=== PATIENT | female | born 1960 | race Caucasian/White ===

== ENCOUNTER 2019-08-03 13:56 | Outpatient (CLI) | payer OTHER, SELFPAY ==
--- NOTE | ~2019-08-03 | US_ITS ---
EXAMINATION: US venous doppler LE RT DATE: 08/03/2019 14:31 INDICATION: Right lower limb pain TECHNIQUE: Grayscale ultrasound images without and with compression and Doppler ultrasound images of the right lower extremity veins were obtained. COMPARISON: 09/11/2017 FINDINGS: Noncompressible deep venous thrombosis in one of the paired peroneal veins at the right calf. Partial ly compressible thrombus in the right soleal vein. The visualized portions of right common femoral ve in, profunda (deep) femoral vein, femoral vein, popliteal vein, peroneal trunk, posterior tibial vein s, gastrocnemius vein and greater saphenous vein outflow are patent. IMPRESSION: 1. Deep venous thrombosis below the knee in one of the paired right peroneal veins and in the right soleal vein. Dr. Shelley discussed these findings with Dr. Montilla at 2:45 PM. Reviewed, dictated and finalized at location A. OGRAPH TINTER IMPRESSION: 1. Deep venous thrombosis below the knee in one of the paired right peroneal v eins and in the right soleal vein. Dr. Shelley discussed these findings with Naeem Montilla at 2:45 PM.
== END 2019-08-03 13:57 | disposition home or self-care (01) ==
LOC: CHSIMG 13:59
PROVIDERS: PCP Family Medicine; Visit Provider Family Medicine
DX: M79.669 Pain in unspecified lower leg (principal)
CPT/HCPCS: 93971

== ENCOUNTER 2019-08-04 07:58 | Outpatient (CLI) | payer OTHER, SELFPAY ==
[2019-08-04 08:17] LABS: Hematocrit 39.8 % (35.0-49.0); Hemoglobin 13.1 g/dL (12.0-15.0); Mean Corpuscular HGB Conc 32.9 g/dL (32.0-36.0); Mean Corpuscular Hemoglobin 27.5 pg (27.0-31.0); Mean Corpuscular Volume 83.6 fL (78.0-102.0); Mean Platelet Volume 9.7 fl (9.2-11.8); Platelet Count Result 284 K/mm3 (150-420); Red Blood Count 4.76 M/mm3 (4.20-5.40); Red Cell Distribution Width 13.2 % (11.6-14.4); White Blood Count 6.7 K/mm3 (4.8-10.8)
[2019-08-04 09:24] LABS: Alanine Aminotransferase 22 U/L (14-59); Albumin Level 3.4 g/dL (3.4-5.0); Alkaline Phosphatase 76 U/L (46-116); Anion Gap 13.7 mmol/L (7-16); Aspartate Amino Transferase 17 U/L (15-37); Bilirubin,Total 0.3 mg/dL (0.00-1.00); Blood Urea Nitrogen 15 mg/dL (7-18); Calcium 8.6 mg/dL (8.5-10.1); Carbon Dioxide 28 mmol/L (21-32); Chloride 106 mmol/L (98-108); Cholesterol 209 mg/dL (0-200); Estimated Glomerular Filt Rate > 60; Folic Acid 8.3 ng/mL (8.6->20); Glucose 103 mg/dL (70-99); HDL Direct 56 mg/dL (40-60); LDL Cholesterol Calculated 138 mg/dL (<130); Osmolality Calculated 296 mOsm/kg (285-295); Potassium 4.7 mmol/L (3.5-5.1); Sodium 143 mmol/L (136-145); Total Protein 6.7 g/dL (6.4-8.2); Triglycerides 77 mg/dL (0-150); Vitamin B12 654 pg/mL (193-986)
[2019-08-09 19:58] LABS: Vitamin D 25 Hydroxy 31 ng/mL (30-100)
== END 2019-08-04 07:59 | disposition home or self-care (01) ==
LOC: CHSLAB 08:03
PROVIDERS: PCP Family Medicine; Visit Provider Family Medicine
DX: M79.669 Pain in unspecified lower leg (principal); E78.5 Hyperlipidemia, unspecified; E53.8 Deficiency of other specified B group vitamins; E55.9 Vitamin D deficiency, unspecified
CPT/HCPCS: 36415; 80053; 80061; 82306; 82607; 82746; 85027

== ENCOUNTER 2020-03-06 14:31 | Emergency (ER) | payer OTHER, SELFPAY ==
--- NOTE | ~2020-03-06 | XR_ITS ---
EXAMINATION: XR tibia fibula RT 2V EXAM DATE: 03/06/2020 15:33 INDICATION: Right lower leg pain radiating to foot. TECHNIQUE: Right tibia/fibula frontal and lateral projections obtained and reviewed. There is no chris or study for comparison. FINDINGS: Right tibial and fibular shafts unremarkable. There are no acute fractures or dislocations identified. There is no subcutaneous gas. The soft tissue is unremarkable. There are no radiopaq ue foreign bodies. IMPRESSION: 1. Unremarkable XR tibia fibula RT 2V exam. Reviewed, dictated and finalized at location B.
--- NOTE | ~2020-03-06 | US_ITS ---
EXAMINATION: US venous doppler LE RT DATE: 03/06/2020 15:22 INDICATION: Right lower limb pain TECHNIQUE: Larose scale images without and with compression and Doppler images of the right lower extre mity veins were obtained. COMPARISON: 08/03/2019 FINDINGS: There is persistent thrombosis in one of two peroneal veins and the soleus vein. There is p artial thrombosis of the gastrocnemius vein, new since the prior examination. The right common femora l vein, profunda femoral vein, femoral vein, popliteal vein, posterior tibial veins, and greater saph enous vein are patent. IMPRESSION: 1. Chronic thrombosis in one of two peroneal veins and the soleus vein and new partial thrombosis of the gastrocnemius vein. These findings were discussed with Dr. Andrew Burdick MD in the Emergency Department at 1532 hour s on 03/06/2020. Reviewed, dictated and finalized at location A. IMPRESSION: 1. Chronic thrombosis in one of two peroneal veins and the soleus vein and new partial thrombosis of the gastrocnemius vein. These findings were discussed with Dr. Andrew Burdick MD in the Emergency D epartment at 1532 hours on 03/06/2020.
--- NOTE | 2020-03-06 14:39 | ED.LOWEXIN ---
HPI - Extremity Injury (Lower) General Chief Complaint: Extremity Injury, Lower Stated Complaint: R calf pain Time Seen by Provider: 03/06/20 14:50 Source: patient Mode of arrival: ambulatory Limitations: no limitations History of Present Illness HPI Narrative: 59-year-old woman comes in today complaining of right calf pain that started approximately 12 30 today. Patient states that she was eating lunch and when she stood up she had sudden sharp pain in her right calf. She denies any injury, nausea, vomiting, shortness of breath, chest pain, or swelling. She states the pain radiates down into her ankle and posterior foot. She has no pain above her knee. She was diagnosed with a right lower extremity DVT in the last year and is currently taking apixaban. complaint: other ( Calf pain) Onset (ago): hour(s) (3) Place: work Severity: severe Relieving factors: rest Exacerbating factors: weight bearing, movement and palpation Associated symptoms: numbness ( right foot now resolved) and tingling ( right foot now resolved) Other symptoms: none Related Data Home Medications Medication Instructions Recorded Confirmed albuterol sulfate 90 mcg/actuation 1 puff INHALATION Q4H PRN 07/29/19 03/06/20 aerosol inhaler Allergies Allergy/AdvReac Type Severity Reaction Status Date / Time acetaminophen [Vicodin] Allergy Intermediate Unknown Verified 10/11/19 07:19 hydrocodone [Vicodin] Allergy Intermediate Unknown Verified 10/11/19 07:19 Review of Systems Constitutional: Constitutional: Denies chills and Denies fever(s) Cardiovascular: Cardiovascular: Denies chest pain and Denies radiating jaw, neck or arm pain Respiratory: Respiratory: Denies cough and Denies dyspnea Gastrointestinal: Gastrointestinal: Denies abdominal pain, Denies nausea and Denies vomiting Musculoskeletal: Musculoskeletal: Reports as per HPI, Denies back pain, Denies arthralgias and Denies joint swelling Integumentary/Breasts: Skin/Breast: Denies pruritus, Denies rash and Denies skin ulcer Neurologic: Denies vertigo, Denies dizziness and Denies syncope Hematologic/Lymphatic: Hematologic/Lymphatic: Denies easy bleeding and Denies easy bruising Allergic/Immunologic: Allergic/Immunologic: Denies lip swelling and Denies tongue swelling PMF Past Medical History Medical History Asthma History of DVT (deep vein thrombosis) Hyperlipidemia Osteoarthritis Vitamin B12 deficiency Vitamin D deficiency Surgical History Surgical History H/O section History of cholecystectomy 2004 History of hysterectomy Social History Social History Smoking status: Former smoker Tobacco type: cigarettes Additional smoking assessment comments: Quit 2010. Over 30 pack-year history Additional occupation/education comments: [employer]. Exam Const: General: healthy appearing and alert Nutritional Appearance: obese Orientation/consciousness: patient oriented x3 Limitations: no limitations Other: moderate acute distress. Resp: Effort & Inspection: normal respiratory effort and not labored Auscultation: clear to auscultation bilaterally, no rales, no rhonchi and no wheezes Cardio: Rate: regular rate Rhythm: regular rhythm Heart sounds: no murmurs Skin: General skin exam: no jaundice and no pallor Rashes: no rashes Neuro: General: patient oriented x3, moves all extremities, no focal motor deficits and CN's II-XI intact bilaterally Speech: normal speech Other: Antalgic gait. Extrem: General: normal to inspection and no clubbing, cyanosis or edema Psych: Appearance: grossly normal and well kempt Mental Status: mental status grossly normal Affect: normal affect Attitude: cooperative Thought content: Yes Normal thought content present MDM - Extremity Injury (Lower)
[2020-03-06 14:51] VITALS: BP 129/83; PULSE 84; RESP 18; TEMP 37.3; O2SAT 96
[2020-03-06 16:36] VITALS: BP 152/92; PULSE 88; RESP 18; O2SAT 97
== END 2020-03-06 16:35 | disposition home or self-care (01) ==
PROVIDERS: Emergency Provider Emergency Medicine; PCP Family Medicine
DX: I82.501 Chronic embolism and thrombosis of unspecified deep veins of right lower extremity (principal)
CPT/HCPCS: 73590; 93971; 99283; 99284

== ENCOUNTER 2020-03-10 07:32 | Outpatient (CLI) | payer OTHER, SELFPAY ==
[2020-03-10 08:08] LABS: INR 1.9; Prothrombin Time 18.9 Seconds (9.64-11.0)
== END 2020-03-10 07:33 | disposition home or self-care (01) ==
LOC: CHSLAB 07:34
PROVIDERS: PCP Family Medicine; Visit Provider Family Medicine
DX: Z86.718 Personal history of other venous thrombosis and embolism (principal)
CPT/HCPCS: 36415; 85610

== ENCOUNTER 2020-03-24 07:40 | Outpatient (CLI) | payer OTHER, SELFPAY ==
[2020-03-24 08:09] LABS: INR 2.4
== END 2020-03-24 07:41 | disposition home or self-care (01) ==
LOC: CHSLAB 07:42
PROVIDERS: PCP Family Medicine; Visit Provider Family Medicine
DX: Z86.718 Personal history of other venous thrombosis and embolism (principal)
CPT/HCPCS: 36415; 85610

== ENCOUNTER 2020-04-10 11:46 | Outpatient (CLI) | payer OTHER, SELFPAY ==
[2020-04-10 12:20] LABS: Prothrombin Time 70.3 Seconds (9.64-11.0)
[2020-04-10 12:34] LABS: INR 7.3
== END 2020-04-10 11:47 | disposition home or self-care (01) ==
LOC: CHSLAB 11:48
PROVIDERS: PCP Family Medicine; Visit Provider Nurse Practitioner Family
DX: R19.5 Other fecal abnormalities (principal); Z79.01 Long term (current) use of anticoagulants
CPT/HCPCS: 85610

== ENCOUNTER 2020-04-11 08:03 | Outpatient (CLI) | payer OTHER, SELFPAY ==
[2020-04-11 08:09] LABS: Occult Blood Positive (Negative)
== END 2020-04-11 08:04 | disposition home or self-care (01) ==
LOC: CHSLAB 08:04
PROVIDERS: PCP Nurse Practitioner Family; Visit Provider Nurse Practitioner Family
DX: R19.5 Other fecal abnormalities (principal)
CPT/HCPCS: 82272

== ENCOUNTER 2020-04-11 10:22 | Emergency (ER) | payer OTHER, SELFPAY ==
[2020-04-11 10:30] VITALS: BP 155/87; PULSE 104; RESP 16; TEMP 36.9; O2SAT 96
--- NOTE | 2020-04-11 10:45 | ED.RECABL ---
HPI - Recheck/Abnormal Lab/Rx General Chief Complaint: GI Bleed Stated Complaint: Abnormal labs Time Seen by Provider: 04/11/20 10:45 Source: patient Mode of arrival: ambulatory Limitations: no limitations History of Present Illness HPI narrative: 59-year-old woman comes in today complaining of black tarry stools that occurred yesterday and blood in her urine today. Patient had extension of chronic lower extremity DVTs for which she was taking apixaban. Last week she was switched over to warfarin and her INR on March 24 was 2.4 and yesterday her INR was 7.3. She comes in today to vitamin K. she states that her heartbeat has been a little fast and she has some upper abdominal pain, but she has had no dysuria, nausea, vomiting, hematemesis, hemoptysis, bruising, headache, lightheadedness, chest pain, or syncope. She denies history of prior GI bleeds and takes no PPIs or H2 blockers. She does not take NSAIDS. MD complaint: abnormal lab Returns today for: called because of abnormal lab/test Context: called for abnormal lab result Associated symptoms: abdominal pain Related Data Home Medications Medication Instructions Recorded Confirmed albuterol sulfate 90 mcg/actuation 1 puff INHALATION Q4H PRN 07/29/19 04/11/20 aerosol inhaler warfarin 5 mg tablet 5 mg PO DAILY 04/10/20 04/11/20 Allergies Allergy/AdvReac Type Severity Reaction Status Date / Time acetaminophen [Vicodin] Allergy Intermediate Unknown Verified 03/10/20 13:10 hydrocodone [Vicodin] Allergy Intermediate Unknown Verified 03/10/20 13:10 Review of Systems Constitutional: Constitutional: Denies chills, Denies fatigue, Denies fever(s) and Denies weakness Cardiovascular: Cardiovascular: Denies chest pain, Reports rapid heart rate and Denies radiating jaw, neck or arm pain Respiratory: Respiratory: Denies cough, Denies dyspnea and Denies wheezing Gastrointestinal: Gastrointestinal: Reports as per HPI, Denies abdominal pain, Denies diarrhea, Denies nausea and Denies vomiting Genitourinary: Genitourinary: Reports hematuria, Denies nocturia and Denies dysuria Musculoskeletal: Musculoskeletal: Denies arthralgias and Denies joint swelling Integumentary/Breasts: Skin/Breast: Denies pruritus, Denies erythema and Denies rash Neurologic: Denies vertigo, Denies dizziness and Denies syncope Endocrine: Endocrine: Denies polydipsia and Denies polyuria Hematologic/Lymphatic: Hematologic/Lymphatic: Denies easy bleeding and Denies easy bruising Allergic/Immunologic: Allergic/Immunologic: Denies lip swelling and Denies tongue swelling [facility] Past Medical History Medical History (Updated 04/11/20 @ 11:56 by Andrew Burdick MD) Asthma History of DVT (deep vein thrombosis) Hyperlipidemia Osteoarthritis Vitamin B12 deficiency Vitamin D deficiency Surgical History Surgical History H/O section History of cholecystectomy 2004 History of hysterectomy Family History Family History Other Family history of type 2 diabetes mellitus Hypertension Social History Social History Smoking status: Former smoker Tobacco type: cigarettes Additional smoking assessment comments: Quit 2009. Over 30 pack-year history Additional occupation/education comments: [employer]. Exam Const: General: no acute distress and alert Nutritional Appearance: obese Orientation/consciousness: patient oriented x3 Limitations: no limitations HENMT: Head: normal to inspection Ears: external ears normal General nose exam: Normal nares present Face and sinus: normal facial exam Eyes: Conjunctivae: conjunctivae normal Pupils: Equal, round and reactive pupils present EOM: EOMs intact bilaterally Resp: Effort & Inspection: normal respiratory effort and not labored Auscultation: clear to
[2020-04-11 11:10] LABS: Basophils Absolute Auto 0.05 K/mm3 (0.00-0.10); Basophils Percent Auto 0.6 % (0.0-1.0); Eosinophils Absolute Auto 0.17 K/mm3 (0.02-0.50); Eosinophils Percent Auto 1.9 % (1.0-6.0); Immature Granulocyte Absolute 0.05 K/mm3 (0.00-0.00); Immature Granulocyte Percent A 0.6 % (0.0-0.0); Lymphocytes Absolute Auto 2.56 K/mm3 (1.10-4.50); Lymphocytes Percent Auto 29.4 % (18.0-42.0); Mean Corpuscular HGB Conc 32.4 g/dL (32.0-36.0); Mean Corpuscular Hemoglobin 27.6 pg (27.0-31.0); Mean Corpuscular Volume 85.4 fL (78.0-102.0); Mean Platelet Volume 9.4 fl (9.2-11.8); Monocytes Absolute Auto 0.56 K/mm3 (0.10-0.90); Monocytes Percent Auto 6.4 % (2.0-11.0); Neutrophils Absolute Auto 5.3 K/mm3 (1.7-7.2); Neutrophils Percent Auto 61.1 % (50.0-70.0); Platelet Count Result 291 K/mm3 (150-420); Red Blood Count 3.98 M/mm3 (4.20-5.40); Red Cell Distribution Width 13.2 % (11.6-14.4); White Blood Count 8.7 K/mm3 (4.8-10.8)
[2020-04-11] MEDS: PANTOPRAZOLE SODIUM IV 40 MG VIAL IV PUSH (11:24)
[2020-04-11 11:26] LABS: Alanine Aminotransferase 25 U/L (14-59); Albumin Level 3.3 g/dL (3.4-5.0); Alkaline Phosphatase 70 U/L (46-116); Anion Gap 6 mmol/L (8-16); Aspartate Amino Transferase 14 U/L (15-37); Bilirubin,Total 0.2 mg/dL (0.00-1.00); Blood Urea Nitrogen 14 mg/dL (7-18); Calcium 8.9 mg/dL (8.5-10.1); Carbon Dioxide 30 mmol/L (21-32); Chloride 106 mmol/L (98-108); Estimated Glomerular Filt Rate > 60; Glucose 119 mg/dL (70-99); Lipase 92 U/L (73-393); Osmolality Calculated 295 mOsm/kg (285-295); Potassium 3.5 mmol/L (3.5-5.1); Sodium 142 mmol/L (136-145); Total Protein 6.6 g/dL (6.4-8.2)
[2020-04-11 11:29] LABS: INR 4.9; Partial Thromboplastin Time 54.8 SEC (22.3-31.6); Prothrombin Time 48.3 Seconds (9.64-11.0)
[2020-04-11 11:30] VITALS: BP 151/76; PULSE 105
[2020-04-11 11:31] VITALS: BP 150/90; PULSE 110
[2020-04-11 11:40] LABS: Add Urine Microscopic? YES; Appearance Urine Cloudy (Clear); Bilirubin Urine 1+ (Negative); Blood Urine 3+ (Negative); Color Urine Red (Yellow); Glucose Urine UA Negative (Negative); Ketones Urine Negative (Negative); Leukocyte Esterase Ur Trace (Negative); Nitrate Urine Negative (Negative); Protein Urine 1+ (Negative)
[2020-04-11 11:45] LABS: Bacteria Urine 1+ /hpf; RBC Urine >75 /hpf (0-2); Squamous Epithelial Cell Urine Rare /hpf (Few); WBC Urine None seen /hpf (0-3)
[2020-04-11 12:11] VITALS: RESP 17
== END 2020-04-11 12:14 | disposition home or self-care (01) ==
PROVIDERS: Emergency Provider Emergency Medicine; PCP Family Medicine
DX: R79.1 Abnormal coagulation profile (principal); K92.1 Melena; R31.0 Gross hematuria
CPT/HCPCS: 36415; 80053; 81001; 83690; 85025; 85610; 85730; 96365; 96375; 99284; C9113; J3430

== ENCOUNTER 2020-05-04 11:49 | Emergency (ER) | payer OTHER, SELFPAY ==
--- NOTE | ~2020-05-04 | US_ITS ---
EXAMINATION:US venous doppler LE BI INDICATION:History of DVT TECHNIQUE: Multiple grayscale, color flow and Doppler images of the right and left lower extremity de ep venous systems were obtained and reviewed. COMPARISON: 03/06/2020. FINDINGS: The common femoral, superficial femoral and popliteal veins demonstrate normal respiratory variation, augmentation and compressibility. Color flow is also seen within the posterior tibial, pe roneal, greater saphenous and profunda veins. IMPRESSION: 1: No lower extremity deep venous thrombosis. Reviewed, dictated and finalized at location B. RUMENT INSTALLER
[2020-05-04 12:00] VITALS: BP 136/74; PULSE 89; RESP 19; TEMP 36.5; O2SAT 100
[2020-05-04 12:23] LABS: Basophils Absolute Auto 0.04 K/mm3 (0.00-0.10); Basophils Percent Auto 0.7 % (0.0-1.0); Eosinophils Absolute Auto 0.13 K/mm3 (0.02-0.50); Eosinophils Percent Auto 2.2 % (1.0-6.0); Hematocrit 34.1 % (35.0-49.0); Hemoglobin 11.2 g/dL (12.0-15.0); Immature Granulocyte Absolute 0.02 K/mm3 (0.00-0.00); Immature Granulocyte Percent A 0.3 % (0.0-0.0); Lymphocytes Absolute Auto 2.39 K/mm3 (1.10-4.50); Lymphocytes Percent Auto 39.6 % (18.0-42.0); Mean Corpuscular HGB Conc 32.8 g/dL (32.0-36.0); Mean Corpuscular Hemoglobin 27.9 pg (27.0-31.0); Monocytes Percent Auto 6.6 % (2.0-11.0); Neutrophils Absolute Auto 3.1 K/mm3 (1.7-7.2); Neutrophils Percent Auto 50.6 % (50.0-70.0); Platelet Count Result 291 K/mm3 (150-420); Red Blood Count 4.01 M/mm3 (4.20-5.40); Red Cell Distribution Width 13.2 % (11.6-14.4)
[2020-05-04 12:42] LABS: INR 4.4; Partial Thromboplastin Time 50.4 SEC (23.90-30.70); Prothrombin Time 45.1 Seconds (9.50-12.10)
[2020-05-04 12:43] LABS: Alanine Aminotransferase 24 U/L (14-59); Albumin Level 3.5 g/dL (3.4-5.0); Alkaline Phosphatase 73 U/L (46-116); Anion Gap 8 mmol/L (8-16); Aspartate Amino Transferase 16 U/L (15-37); Bilirubin,Total 0.3 mg/dL (0.00-1.00); Blood Urea Nitrogen 15 mg/dL (7-18); Calcium 9.1 mg/dL (8.5-10.1); Carbon Dioxide 30 mmol/L (21-32); Chloride 102 mmol/L (98-108); Estimated Glomerular Filt Rate > 60; Glucose 116 mg/dL (70-99); Osmolality Calculated 291 mOsm/kg (285-295); Potassium 3.6 mmol/L (3.5-5.1); Sodium 140 mmol/L (136-145)
--- NOTE | 2020-05-04 12:53 | ED.EXTPRO ---
HPI - Extremity Problem General Chief complaint: Extremity Problem,Nontraumatic Stated complaint: possible blood clot Source: patient Mode of arrival: ambulatory Limitations: no limitations History of Present Illness HPI Narrative: this is a 59-year-old female with a history of DVT in her right lower extremity and currently on Coumadin. Patient presents with some left lower leg pain with no swelling in her calf does have some mild tenderness in the anterior aspect of her left lower extremity with no shortness of breath, no fever chills no cough no congestion. Patient denies any chest pain, there is no abdominal pain. Patient currently is on Coumadin, and there is no swelling no warmth and mild tenderness in the posterior left calf. Complaint: extremity pain Onset (ago): hour(s) Pain Consistency: intermittent Location: left Severity scale (1-10): 4 Quality: aching Radiation: none Relieving factors: rest Exacerbating factors: walking Associated symptoms: denies other symptoms Related Data Home Medications Medication Instructions Recorded Confirmed albuterol sulfate 90 mcg/actuation 1 puff INHALATION Q4H PRN 07/29/19 05/04/20 aerosol inhaler warfarin 5 mg tablet 5 mg PO DAILY 04/10/20 05/04/20 multivitamin 1 tablet PO DAILY 04/13/20 05/04/20 Allergies Allergy/AdvReac Type Severity Reaction Status Date / Time hydrocodone [Vicodin] Allergy Intermediate Unknown Verified 04/13/20 13:08 Review of Systems Review of Systems: All systems reviewed & are unremarkable except as noted in HPI and below PMFSH Past Medical History Medical History Asthma Black stools Encounter for screening colonoscopy History of DVT (deep vein thrombosis) Hyperlipidemia Osteoarthritis Vitamin B12 deficiency Vitamin D deficiency Surgical History Surgical History H/O section History of cholecystectomy 2004 History of hysterectomy Family History Family History Other Family history of type 2 diabetes mellitus Hypertension Social History Social History Smoking status: Former smoker Tobacco type: cigarettes Additional smoking assessment comments: Quit 2009. Over 30 pack-year history Additional occupation/education comments: [employer]. Exam Const: General: no acute distress and alert Orientation/consciousness: patient oriented x3 Limitations: altered mental status HENMT: Head: normal to inspection Eyes: Conjunctivae: conjunctivae normal Pupils: Equal, round and reactive pupils present EOM: EOMs intact bilaterally Neck: Neck: normal visual inspection Chest: Chest palpation & inspection: normal inspection of the chest Resp: Effort & Inspection: normal respiratory effort Auscultation: clear to auscultation bilaterally Cardio: Rate: regular rate Rhythm: regular rhythm GI: GI Palp: Yes Soft to palpation : General: Yes no CVA tenderness Skin: General skin exam: normal color Rashes: no rashes Neuro: General: patient oriented x3, moves all extremities, no meningeal signs and no focal motor deficits Extrem: Other: Anterior left lower extremity bond tenderness with palpation with no calf swelling no redness no erythema and no calf tenderness Psych: Appearance: grossly normal Mental Status: mental status grossly normal Thought content: Yes Normal thought content present Course Course Emergency Course: patient with left lower extremity pain and history of right lower extremity DVT, ultrasound reviewed with patient and explained there is no DVT, advised that she can take up Tylenol extra-strength for her lower extremity pain. Her an INR was supratherapeutic at 4.4 advised her to hold her Coumadin dose Overnight and restart and follow-up with primary care physic
[2020-05-04 13:15] VITALS: RESP 17
== END 2020-05-04 13:15 | disposition home or self-care (01) ==
PROVIDERS: Emergency Provider Emergency Medicine; PCP Family Medicine
DX: M79.605 Pain in left leg (principal)
CPT/HCPCS: 36415; 80053; 85025; 85610; 85730; 93970; 99282; 99284

== ENCOUNTER 2020-05-31 16:59 | Outpatient (CLI) | payer OTHER, SELFPAY ==
[2020-05-31 17:26] LABS: Prothrombin Time 20.9 Seconds (9.50-12.10)
== END 2020-05-31 17:00 | disposition home or self-care (01) ==
LOC: CHSLAB 17:01
PROVIDERS: PCP Family Medicine; Visit Provider Family Medicine
DX: Z79.01 Long term (current) use of anticoagulants (principal)
CPT/HCPCS: 36415; 85610

== ENCOUNTER 2020-06-13 11:52 | Outpatient (RCR) | payer OTHER, SELFPAY ==
[2020-03-17 17:27] LABS: Prothrombin Time 54.5 Seconds (9.64-11.0)
[2020-03-17 19:21] LABS: INR 5.6
[2020-04-17 12:10] LABS: INR 2.8; Prothrombin Time 27.7 Seconds (9.64-11.0)
[2020-05-09 17:11] LABS: INR 2.8; Prothrombin Time 29.1 Seconds (9.50-12.10)
[2020-05-16 09:57] LABS: INR 3.2; Prothrombin Time 33.3 Seconds (9.50-12.10)
[2020-05-29 08:55] LABS: Prothrombin Time 63.7 Seconds (9.50-12.10)
[2020-05-29 09:14] LABS: INR 6.4
[2020-06-06 11:55] LABS: INR 3.3; Prothrombin Time 34.4 Seconds (9.50-12.10)
[2020-06-13 12:23] LABS: INR 3.7; Prothrombin Time 38.2 Seconds (9.50-12.10)
== END 2020-06-15 23:59 | disposition home or self-care (01) ==
LOC: CHSLAB 11:52
PROVIDERS: Nurse Practitioner Family; PCP Family Medicine; Visit Provider Family Medicine
DX: Z79.01 Long term (current) use of anticoagulants (principal)
CPT/HCPCS: 36415; 85610

== ENCOUNTER 2020-07-13 09:46 | Outpatient (RCR) | payer OTHER, SELFPAY ==
[2020-06-19 12:17] LABS: INR 2.1; Prothrombin Time 22.5 Seconds (9.50-12.10)
[2020-06-29 17:45] LABS: INR 1.8; Prothrombin Time 18.8 Seconds (9.50-12.10)
[2020-07-05 16:38] LABS: INR 2.1; Prothrombin Time 21.9 Seconds (9.50-12.10)
[2020-07-13 10:09] LABS: INR 2.6; Prothrombin Time 26.5 Seconds (9.50-12.10)
== END 2020-09-17 23:59 | disposition home or self-care (01) ==
LOC: CHSLAB 09:46
PROVIDERS: PCP Family Medicine; Visit Provider Family Medicine
DX: Z79.01 Long term (current) use of anticoagulants (principal)
CPT/HCPCS: 36415; 85610

== ENCOUNTER → 2020-08-26 02:15 | Outpatient (CLI) | payer OTHER, SELFPAY ==
[2020-08-26 20:23] LABS: SARS-CoV-2 RNA PCR Negative
== END ==
PROVIDERS: PCP Family Medicine; Visit Provider Internal Medicine Gastroenterology
DX: Z01.812 Encounter for preprocedural laboratory examination (principal); Z20.822 Contact with and (suspected) exposure to COVID-19
CPT/HCPCS: C9803; U0003; U0005

== ENCOUNTER 2020-08-30 01:23 | Day surgery (SDC) | payer OTHER, SELFPAY ==
[2020-08-16 13:34] VITALS: BMI 41.6
--- NOTE | 2020-08-17 08:48 | PC.NURSE ---
PT. NOTIFIED TO STOP WARFARIN AFTER TAKING THE DOSE ON 08/24/2020 UNTIL AFTER HER PROCEDURE APPROVED BY DR. TOLBERT.
[2020-08-30 10:03] VITALS: BP 149/96; PULSE 89; RESP 18; TEMP 36.8; O2SAT 99
[2020-08-30] MEDS: LACTATED RINGERS 1,000 ML 150 ML IV CONT (10:15)
--- NOTE | 2020-08-30 10:37 | WPDANESEPPF ---
Anes - Initial Pre Proc Eval Procedure: Operation Date: 08/30/20 11:00 Proposed Procedures p Esophagogastroduodenoscopy & Colonoscopy - Mauro Paez MD Date/Time: 08/30/20 10:37 Surgeon: Mauro Paez MD Pre Op Diagnosis: GI bleed Patient Data Age: 59 Gender: F Height: 5 ft 6 in Weight: 114.7 kg Last Vital Signs Temp 98.2 F 08/30/20 10:03 Pulse 89 08/30/20 10:03 Resp 18 08/30/20 10:03 BP 149/96 H 08/30/20 10:03 Pulse Ox 99 08/30/20 10:03 Allergies Allergy/AdvReac Type Severity Reaction Status Date / Time hydrocodone [Vicodin] Allergy Intermediate Unknown Verified 08/30/20 10:00 Home Medications Medication Instructions Recorded Confirmed Type albuterol sulfate 90 mcg/actuation 1 puff INHALATION Q4H PRN 07/29/19 08/16/20 History aerosol inhaler multivitamin 1 tablet PO DAILY 04/13/20 08/16/20 History warfarin 2.5 mg tablet 2.5 mg PO 4XW #30 tablet 06/13/20 08/30/20 Rx warfarin 5 mg tablet See Rx Instructions .ROUTE 08/15/20 08/16/20 Rx .COMPLEX #90 tablet Patient hx anesthesia problems: none Family hx anesthesia problems: none PMFSH Past Medical History Medical History (Updated 07/13/20 @ 08:44 by Mauro Paez MD) Asthma Black stools Encounter for screening colonoscopy History of DVT (deep vein thrombosis) Hyperlipidemia Obesity, morbid, BMI 40.0-49.9 Osteoarthritis Vitamin B12 deficiency Vitamin D deficiency Surgical History Surgical History H/O section History of cholecystectomy 2004 History of hysterectomy Family History Family History Other Family history of type 2 diabetes mellitus Hypertension Social History Social History Smoking packs per day: 1.5 Smoking cigarettes per day: 30.0 Years smoked: 35 Smoking pack-years: 52.50 Smoking status: Former smoker Tobacco type: cigarettes Additional smoking assessment comments: Quit 2009. Over 30 pack-year history Alcohol intake: never Substance use type: does not use Living arrangements: with family Additional occupation/education comments: [employer]. Spiritual care concerns: No Anes - Eval Final PreProcedure Day of Procedure 08/30/20 10:37 Patient weight: morbidly obese Heart: regular rate and rhythm Lungs: clear to auscultation Airway: Mallampati scale class III Neurological: alert and oriented Last oral intake: >/= 8 hours ASA classification: III Emergent: no Anesthetic plan: proceed Anesthesia type and monitoring: general GIVS and standard monitoring Informed Consent: The patient's anesthetic plan and its attendant risks and benefits were discussed with the patient/family/POA. Questions were solicited and answers provided to the satisfaction of the patient/family/POA.
--- NOTE | 2020-08-30 10:58 | PM.HPGS ---
History of Present Illness History of Present Illness Consent: Risks, benefits, and alternatives have been discussed and questions answered. Patient agrees to proceed with procedure. Chief complaint: GI bleed Narrative: Brianna Stover is a 59 year old female with previous melena in setting of coumadin with supratherapeutic INR, never had scopes Review of Systems Constitutional: Constitutional: Denies headache(s) and Denies weakness Eyes: Eyes: Denies blurry vision ENT: Reports Normal hearing present, Denies headache(s) and Denies neck pain Cardiovascular: Cardiovascular: Denies chest pain and Denies dyspnea Respiratory: Respiratory: Denies dyspnea Gastrointestinal: Gastrointestinal: Reports no additional gastrointestinal complaints Genitourinary: Genitourinary: Denies dysuria Musculoskeletal: Musculoskeletal: Denies neck pain Integumentary/Breasts: Skin/Breast: Denies dry skin Neurologic: Reports Normal hearing present, Denies headache(s) and Denies weakness Psychiatric: Psychiatric: Denies anxiety Endocrine: Endocrine: Denies change in body appearance Hematologic/Lymphatic: Hematologic/Lymphatic: Denies easy bleeding Allergic/Immunologic: Allergic/Immunologic: Denies urticaria PMFSH Past Medical History Medical History (Updated 08/30/20 @ 10:59 by Mauro Paez MD) Asthma Black stools Encounter for screening colonoscopy History of DVT (deep vein thrombosis) Hyperlipidemia Melena Obesity, morbid, BMI 40.0-49.9 Osteoarthritis Vitamin B12 deficiency Vitamin D deficiency Surgical History Surgical History H/O section History of cholecystectomy 2004 History of hysterectomy Family History Family History Other Family history of type 2 diabetes mellitus Hypertension Social History Social History Smoking packs per day: 1.5 Smoking cigarettes per day: 30.0 Years smoked: 35 Smoking pack-years: 52.50 Smoking status: Former smoker Tobacco type: cigarettes Additional smoking assessment comments: Quit 2009. Over 30 pack-year history Alcohol intake: never Substance use type: does not use Living arrangements: with family Additional occupation/education comments: [employer] Spiritual care concerns: No Meds Home Medications and Allergies Home Medications Medication Instructions Recorded Confirmed Type albuterol sulfate 90 mcg/actuation 1 puff INHALATION Q4H PRN 07/29/19 08/16/20 History aerosol inhaler multivitamin 1 tablet PO DAILY 04/13/20 08/16/20 History warfarin 2.5 mg tablet 2.5 mg PO 4XW #30 tablet 06/13/20 08/30/20 Rx warfarin 5 mg tablet See Rx Instructions .ROUTE 08/15/20 08/16/20 Rx .COMPLEX #90 tablet Allergies Allergy/AdvReac Type Severity Reaction Status Date / Time hydrocodone [Vicodin] Allergy Intermediate Unknown Verified 08/30/20 10:00 Vital Signs Vital Signs - 24 hr 08/30/20 10:03 Temperature 98.2 F Pulse Rate 89 Respiratory Rate 18 Blood Pressure 149/96 H Pulse Oximetry 99 Exam Const: General: comfortable and no acute distress HENMT: General nose exam: Normal nares present Eyes: General: appearance normal, both eyes and all related structures Neck: Neck: no JVD Resp: Auscultation: clear to auscultation bilaterally Cardio: Rate: regular rate Rhythm: regular rhythm GI: Inspection: non-distended GI Palp: Yes Soft to palpation Skin: General skin exam: normal color Neuro: General: gait normal Speech: normal speech Extrem: General: normal to inspection Psych: Mental Status: mental status grossly normal Assessment and Plan Assessment and plan (1) History of DVT (deep vein thrombosis): Code(s): Z86.718 - Personal history of other venous thrombosis and embolism Status: Acute
[2020-08-30] MEDS: BENZOCAINE (*SP) 60 ML SPRAY CAN (HURRICAINE) 1 SPRAY MUCOUS MEM (11:06)
[2020-08-30 11:38] VITALS: BP 98/66; PULSE 86; RESP 22; O2SAT 98
[2020-08-30 11:48] VITALS: BP 119/70; PULSE 78; RESP 18; O2SAT 99
[2020-08-30 11:58] VITALS: BP 118/74; PULSE 74; RESP 16; O2SAT 99
== END 2020-08-30 12:09 | disposition home or self-care (01) ==
PROVIDERS: PCP Family Medicine; Visit Provider Internal Medicine Gastroenterology
PROC: 0DJ08ZZ Inspection of Upper Intestinal Tract, Via Natural or Artificial Opening Endoscopic (ICD-10-PCS; CPT 43235; principal; 2020-08-30 11:00)
DX: Z12.11 Encounter for screening for malignant neoplasm of colon (principal); D12.4 Benign neoplasm of descending colon; D12.8 Benign neoplasm of rectum; D12.5 Benign neoplasm of sigmoid colon; K25.9 Gastric ulcer, unspecified as acute or chronic, without hemorrhage or perforation; K44.9 Diaphragmatic hernia without obstruction or gangrene; K29.80 Duodenitis without bleeding; K57.30 Diverticulosis of large intestine without perforation or abscess without bleeding; K64.8 Other hemorrhoids; R79.1 Abnormal coagulation profile; Z79.01 Long term (current) use of anticoagulants; Z79.51 Long term (current) use of inhaled steroids; J45.909 Unspecified asthma, uncomplicated; E78.5 Hyperlipidemia, unspecified; E55.9 Vitamin D deficiency, unspecified; E53.8 Deficiency of other specified B group vitamins; M19.90 Unspecified osteoarthritis, unspecified site; Z86.718 Personal history of other venous thrombosis and embolism; Z87.891 Personal history of nicotine dependence; E66.01 Morbid (severe) obesity due to excess calories; Z68.41 Body mass index [BMI] 40.0-44.9, adult
CPT/HCPCS: 45385; 43239; 88305; C9803; J2001; J2704; J7120; U0003; U0005

== ENCOUNTER 2020-09-11 13:17 | Outpatient (CLI) | payer OTHER, SELFPAY ==
[2020-09-11 13:30] LABS: Hematocrit 38.2 % (35.0-49.0); Hemoglobin 12.1 g/dL (12.0-15.0); Mean Corpuscular HGB Conc 31.7 g/dL (32.0-36.0); Mean Corpuscular Hemoglobin 24.9 pg (27.0-31.0); Mean Corpuscular Volume 78.8 fL (78.0-102.0); Mean Platelet Volume 9.6 fl (9.2-11.8); Platelet Count Result 310 K/mm3 (150-420); Red Blood Count 4.85 M/mm3 (4.20-5.40); White Blood Count 7.8 K/mm3 (4.8-10.8)
[2020-09-11 14:54] LABS: Alanine Aminotransferase 24 U/L (14-59); Albumin Level 3.5 g/dL (3.4-5.0); Alkaline Phosphatase 81 U/L (46-116); Anion Gap 7 mmol/L (8-16); Aspartate Amino Transferase 14 U/L (15-37); Bilirubin,Total 0.3 mg/dL (0.00-1.00); Blood Urea Nitrogen 14 mg/dL (7-18); Calcium 8.7 mg/dL (8.5-10.1); Carbon Dioxide 28 mmol/L (21-32); Chloride 102 mmol/L (98-108); Estimated Glomerular Filt Rate > 60; Folic Acid 16.7 ng/mL (8.6->20); Glucose 172 mg/dL (70-99); Osmolality Calculated 288 mOsm/kg (285-295); Potassium 3.8 mmol/L (3.5-5.1); Sodium 137 mmol/L (136-145); Total Protein 7.5 g/dL (6.4-8.2); Vitamin B12 526 pg/mL (193-986)
[2020-09-13 18:17] LABS: Vitamin D 25 Hydroxy 37 ng/mL (30-100)
== END 2020-09-11 13:18 | disposition home or self-care (01) ==
LOC: CHSLAB 13:21
PROVIDERS: PCP Family Medicine; Visit Provider Family Medicine
DX: Z86.718 Personal history of other venous thrombosis and embolism (principal); E53.8 Deficiency of other specified B group vitamins; E55.9 Vitamin D deficiency, unspecified
CPT/HCPCS: 36415; 80053; 82306; 82607; 82746; 85027

== ENCOUNTER 2020-10-14 08:43 | Emergency (ER) | payer OTHER, SELFPAY ==
--- NOTE | ~2020-10-14 | XR_ITS ---
XR foot RT 2V DATE: 10/14/2020 09:34 INDICATION: Right foot injury, pain TECHNIQUE: AP and lateral views COMPARISON: None FINDINGS: Prominent plantar and posterior calcaneal enthesopathy. No fracture, dislocation, periosteal reaction or bone destruction. There are osteoarthritic changes at the tarsal and tarsometatarsal joints. IMPRESSION: Prominent plantar and posterior calcaneal enthesopathy Osteoarthritic changes at the tarsal and tarsometatarsal joints Reviewed, dictated and finalized at location A.
--- NOTE | ~2020-10-14 | XR_ITS ---
XR ankle RT 2V DATE: 10/14/2020 09:34 INDICATION: Injury, pain TECHNIQUE: AP and lateral views COMPARISON: None FINDINGS: Prominent plantar and posterior calcaneal enthesopathy. Osteoarthritic changes are noted at the tarsal and tarsometatarsal joints. No fracture or dislocation of the ankle or disruption of the ankle mortise is detected. IMPRESSION: No fracture or dislocation of the ankle Prominent plantar and posterior calcaneal enthesopathy Osteoarthritic changes at the tarsal and tarsometatarsal joints Reviewed, dictated and finalized at location A.
[2020-10-14 09:05] VITALS: BP 152/109; PULSE 85; RESP 20; TEMP 36.6; O2SAT 96
--- NOTE | 2020-10-14 09:56 | ED.LOWEXIN ---
HPI - Extremity Injury (Lower) General Chief Complaint: Extremity Injury, Lower Stated Complaint: R leg pain Source: patient Mode of arrival: ambulatory Limitations: no limitations History of Present Illness HPI Narrative: this is a 59-year-old female presents after she injured her right ankle and heel when she got it trapped between to shopping carts, patient states her pain is at 10/10 with ambulation but with rest is more tolerable than that. There is some pain with movement and palpation although has good range of motion with no numbness or tingling no bruising and minimal swelling. complaint: ankle injury Onset (ago): day(s) Related Data Home Medications Medication Instructions Recorded Confirmed albuterol sulfate 90 mcg/actuation 1 puff INHALATION Q4H PRN 07/29/19 10/14/20 aerosol inhaler multivitamin 1 tablet PO DAILY 04/13/20 10/14/20 Allergies Allergy/AdvReac Type Severity Reaction Status Date / Time hydrocodone [Vicodin] Allergy Intermediate Unknown Verified 09/29/20 11:20 Review of Systems Review of Systems: All systems reviewed & are unremarkable except as noted in HPI and below PMFSH Past Medical History Medical History Asthma History of DVT (deep vein thrombosis) Hyperlipidemia Obesity, morbid, BMI 40.0-49.9 Osteoarthritis Vitamin B12 deficiency Vitamin D deficiency Surgical History Surgical History H/O section History of cholecystectomy 2004 History of hysterectomy Family History Family History Other Family history of type 2 diabetes mellitus Hypertension Social History Social History Smoking packs per day: 1.5 Smoking cigarettes per day: 30.0 Years smoked: 35 Smoking pack-years: 52.50 Smoking status: Former smoker Tobacco type: cigarettes Additional smoking assessment comments: Quit 2009. Over 30 pack-year history Alcohol intake: never Substance use type: does not use Additional occupation/education comments: [employer]. Spiritual care concerns: No Exam Const: General: no acute distress HENMT: Head: normal to inspection Eyes: Pupils: Equal, round and reactive pupils present Chest: Chest palpation & inspection: normal inspection of the chest Resp: Effort & Inspection: normal respiratory effort Cardio: Rate: regular rate Rhythm: regular rhythm GI: GI Palp: Yes Soft to palpation Back/Spine/Pelvis: Back: no CVA tenderness Skin: General skin exam: normal color Rashes: no rashes Neuro: General: patient oriented x3 Extrem: General: edema Other: Pain and tenderness to the right heel with palpation and movement Psych: Mental Status: mental status grossly normal Affect: normal affect Course Course Emergency Course: but patient declined any pain medication, reviewed x-ray findings and advised patient to use ice keep foot and leg elevated and can use Tylenol and an Kapil wrap. And to follow-up with her primary care doctor Vital Signs Vital signs: Vital Signs Temperature 36.6 C 10/14/20 09:05 Pulse Rate 85 10/14/20 09:05 Respiratory Rate 20 10/14/20 09:05 Blood Pressure 152/109 H 10/14/20 09:05 Pulse Oximetry 96 10/14/20 09:05 Temperature 36.6 C 10/14/20 09:05 Pulse Rate 85 10/14/20 09:05 Respiratory Rate 20 10/14/20 09:05 Blood Pressure 152/109 H 10/14/20 09:05 Pulse Oximetry 96 10/14/20 09:05 Critical Care Time Critical Care Time Critical Care Time: No Discharge Plan Discharge Clinical Impression: Ankle sprain Qualifiers: Encounter type: initial encounter Involved ligament of ankle: unspecified ligament Laterality: right Qualified Code(s): S93.401A - Sprain of unspecified ligament of right ankle, initial encounter Patient Disposition: Home,
[2020-10-14 10:10] VITALS: RESP 17
== END 2020-10-14 10:10 | disposition home or self-care (01) ==
PROVIDERS: Emergency Provider Emergency Medicine; PCP Family Medicine
DX: S93.401A Sprain of unspecified ligament of right ankle, initial encounter (principal); W22.8XXA Striking against or struck by other objects, initial encounter
CPT/HCPCS: 73600; 73620; 99282; 99283

== ENCOUNTER 2020-12-28 14:07 | Outpatient (CLI) | payer OTHER, SELFPAY ==
--- NOTE | ~2020-12-28 | XR_ITS ---
EXAMINATION: XR hand RT min 3V INDICATION: Right hand pain TECHNIQUE: Three views of the right hand are obtained. COMPARISON: None available FINDINGS: There is advanced osteoarthritis at the first carpometacarpal joint. Moderate osteoarthriti s is noted in multiple interphalangeal joints. No fracture is identified. There is mild dorsal soft t issue swelling of the hand. IMPRESSION: 1. Osteoarthritis without acute osseous abnormality. Reviewed, dictated and finalized at location A.
== END 2020-12-28 14:08 | disposition home or self-care (01) ==
LOC: CHSIMG 14:09
PROVIDERS: PCP Family Medicine; Visit Provider Family Medicine
DX: S69.91XA Unspecified injury of right wrist, hand and finger(s), initial encounter (principal); S60.221A Contusion of right hand, initial encounter
CPT/HCPCS: 73130

== ENCOUNTER 2020-12-28 14:12 | Outpatient (RCR) | payer OTHER, SELFPAY ==
[2020-09-29 13:50] LABS: INR 2.3; Prothrombin Time 23.2 Seconds (9.50-12.10)
[2020-12-16 18:39] LABS: INR 1.8; Prothrombin Time 18.6 Seconds (9.50-12.10)
[2020-12-28 14:47] LABS: INR 2.4; Prothrombin Time 24.5 Seconds (9.50-12.10)
== END 2020-12-28 23:59 | disposition home or self-care (01) ==
LOC: CHSLAB 14:12
PROVIDERS: PCP Family Medicine; Visit Provider Family Medicine
DX: Z79.01 Long term (current) use of anticoagulants (principal)
CPT/HCPCS: 36415; 85610

== ENCOUNTER 2021-03-06 01:50 | Emergency (ER) | payer OTHER, SELFPAY ==
--- NOTE | ~2021-03-06 | CT_ITS ---
EXAMINATION: CT cervical spine wo con DATE: 03/06/2021 04:00 INDICATION: Left arm pain TECHNIQUE: Computed tomography (CT) of the cervical spine was performed without intravenous contrast. Automated exposure control and iterative reconstruction technique were employed. The dose-length pro duct was 570.03 mGy-cm. COMPARISON: None FINDINGS: Straightening of the normal cervical lordosis. No spondylolisthesis or facet subluxation. Severe oste oarthritis at the atlantoaxial articulation. Vertebral body heights are normal. No fracture. Mild dis c height loss at C5-C6. Mild mucoperiosteal thickening the bilateral ethmoid sinuses. Mastoid air rosaura ls, middle ear cavities, visualized airway and apices of the lungs are clear. Heterogeneous attenuati on and coarse calcifications in the right thyroid lobe suggesting a few thyroid nodules. Cervical sof t tissues are otherwise unremarkable. The following disc levels are specifically discussed: C2-C3: Disc is bulging. There is mild bilateral uncovertebral joint osteoarthritis. There is mild rig ht and moderate left facet joint osteoarthritis. There is no neural foraminal stenosis. There is mild central canal stenosis. C3-C4: Disc is bulging. There is mild bilateral uncovertebral joint osteoarthritis. There is severe b ilateral facet joint osteoarthritis. There is mild left and moderate right neural foraminal stenosis. There is mild central canal stenosis. C4-C5: Disc is bulging. There is mild bilateral uncovertebral joint osteoarthritis. There is moderate right and severe left facet joint osteoarthritis. There is mild right and minimal left neural forami nal stenosis. There is mild central canal stenosis. C5-C6: Posterior disc osteophyte complex. There is mild left and moderate right uncovertebral joint o steoarthritis. There is moderate left and severe right facet joint osteoarthritis. There is mild left and moderate right neural foraminal stenosis. There is moderate central canal stenosis. C6-C7: Disc is bulging. There is mild bilateral uncovertebral joint osteoarthritis. There is mild to moderate right and severe left facet joint osteoarthritis. There is mild right and moderate left neur al foraminal stenosis. There is moderate central canal stenosis. C7-T1: The disc does not extend beyond the endplate margin. There is no uncovertebral joint osteoarth ritis. There is severe bilateral facet joint osteoarthritis. There is mild left neural foraminal sten osis. There is no central canal stenosis. IMPRESSION: 1. Mild to moderate cervical spondylosis. No acute osseous abnormality. 2. Multiple right thyroid nodules. Would consider thyroid ultrasound for risk stratification. Reviewed, dictated and finalized at location B. IMPRESSION: 1. Mild to moderate cervical spondylosis. No acute osseous abnormality. 2. Multiple right thyroid nodules. Would consider thyroid ultrasound for risk s tratification.
[2021-03-06 02:15] VITALS: BP 133/82; PULSE 88; RESP 22; TEMP 36.6; O2SAT 98
--- NOTE | 2021-03-06 02:31 | ED.EXTPRO ---
HPI - Extremity Problem General Chief complaint: Extremity Problem,Nontraumatic Stated complaint: left arm pain Source: patient and RN notes reviewed Mode of arrival: ambulatory Limitations: no limitations History of Present Illness HPI Narrative: Patient states she woke up with pain in her left neck and shoulder. Having some numbness and tingling in her fingers. She denies any repetitive activity or recent trauma. She has no weakness numbness or tingling in her left leg. Pain is worse when she moves her neck or her left shoulder. Complaint: extremity pain Onset (ago): minute(s) (30) Pain Consistency: constant Location: left and upper extremity Severity scale (1-10): 6 Quality: burning, aching and sharp Radiation: distal Relieving factors: nothing Exacerbating factors: range of motion and palpation Associated symptoms: denies other symptoms Related Data Home Medications Medication Instructions Recorded Confirmed albuterol sulfate 90 mcg/actuation 1 puff INHALATION Q4H PRN 07/29/19 03/06/21 aerosol inhaler Allergies Allergy/AdvReac Type Severity Reaction Status Date / Time hydrocodone [Vicodin] Allergy Intermediate Unknown Verified 12/28/20 13:45 Review of Systems Review of Systems: All systems reviewed & are unremarkable except as noted in HPI and below Constitutional: Constitutional: Denies chills and Denies fever(s) Cardiovascular: Cardiovascular: Denies chest pain and Denies diaphoresis Respiratory: Respiratory: Denies cough and Denies dyspnea Gastrointestinal: Gastrointestinal: Denies nausea and Denies vomiting Neurologic: Denies confusion, Denies dizziness, Denies syncope and Denies headache(s) [facility] Past Medical History Medical History Asthma Contusion of right hand History of DVT (deep vein thrombosis) Hyperlipidemia Obesity, morbid, BMI 40.0-49.9 Osteoarthritis Vitamin B12 deficiency Vitamin D deficiency Surgical History Surgical History H/O section History of cholecystectomy 2004 History of hysterectomy Family History Family History Other Family history of type 2 diabetes mellitus Hypertension Social History Social History Smoking packs per day: 1.5 Smoking cigarettes per day: 30.0 Years smoked: 35 Smoking pack-years: 52.50 Smoking status: Former smoker Tobacco type: cigarettes Additional smoking assessment comments: Quit 2010. Over 30 pack-year history Alcohol intake: never Substance use type: does not use Additional occupation/education comments: [employer]. Spiritual care concerns: No Exam Const: General: healthy appearing, no acute distress and alert Nutritional Appearance: well nourished and obese morbidly obese Orientation/consciousness: patient oriented x3 HENMT: Head: normal to inspection Ears: external ears normal Mouth: Yes moist mucous membranes Eyes: Conjunctivae: conjunctivae normal Pupils: Equal, round and reactive pupils present EOM: EOMs intact bilaterally Neck: Neck: normal visual inspection and no lymphadenopathy Resp: Effort & Inspection: normal respiratory effort Auscultation: clear to auscultation bilaterally Cardio: Rate: regular rate Rhythm: regular rhythm GI: GI Palp: Yes Soft to palpation, No Tenderness to palpation present (GI) and No Guarding due to palpation present (GI) Auscultation: normal bowel sounds Back/Spine/Pelvis: Cervical Spine: pain with cervical ROM, No cervical spasm and No Cervical spine tenderness Thoracic/Lumbar Spine: thoraco-lumbar ROM normal Skin: General skin exam: normal color Rashes: no rashes Other: no swelling noted of the left forearm or hand, capillary refill less than 2nd in the left hand, no palpable cords, no erythema, no swelling of the left u
--- NOTE | 2021-03-06 02:38 | ECG_ITS ---
Measurements Intervals [place] Rate: 85 P: 38 GA: 147 QRS: 23 QRSD: 88 T: 73 QT: 361 QTc: 431 Interpretive Statements SINUS RHYTHM EARLY PRECORDIAL R/S TRANSITION BORDERLINE ST-T WAVE ABNORMALITY- HIGH LATERAL LEADS BASELINE ARTIFACT- I, II, III, AVR, AVL, AVF, V1 BORDERLINE ECG Electronically Signed On 03-06-2021 8:14:32 CDT by Derik Luna D.O.
[2021-03-06 02:53] LABS: Basophils Absolute Auto 0.06 K/mm3 (0.00-0.10); Basophils Percent Auto 0.8 % (0.0-1.0); Eosinophils Absolute Auto 0.15 K/mm3 (0.02-0.50); Eosinophils Percent Auto 2.1 % (1.0-6.0); Hemoglobin 12.5 g/dL (12.0-15.0); Immature Granulocyte Absolute 0.02 K/mm3 (0.00-0.00); Immature Granulocyte Percent A 0.3 % (0.0-0.0); Lymphocytes Absolute Auto 2.91 K/mm3 (1.10-4.50); Lymphocytes Percent Auto 40.8 % (18.0-42.0); Mean Corpuscular HGB Conc 32.1 g/dL (32.0-36.0); Mean Corpuscular Hemoglobin 26.7 pg (27.0-31.0); Mean Corpuscular Volume 83.2 fL (78.0-102.0); Mean Platelet Volume 9.3 fl (9.2-11.8); Monocytes Absolute Auto 0.58 K/mm3 (0.10-0.90); Monocytes Percent Auto 8.1 % (2.0-11.0); Neutrophils Absolute Auto 3.4 K/mm3 (1.7-7.2); Neutrophils Percent Auto 47.9 % (50.0-70.0); Platelet Count Result 289 K/mm3 (150-420); Red Blood Count 4.69 M/mm3 (4.20-5.40); Red Cell Distribution Width 14.6 % (11.6-14.4); White Blood Count 7.1 K/mm3 (4.8-10.8)
[2021-03-06 03:03] LABS: INR 1.8; Prothrombin Time 19.1 Seconds (9.50-12.10)
[2021-03-06 03:07] LABS: D Dimer 0.19 mg/L (0.19-0.50)
[2021-03-06 03:09] LABS: Alanine Aminotransferase 29 U/L (14-59); Albumin Level 3.3 g/dL (3.4-5.0); Alkaline Phosphatase 77 U/L (46-116); Aspartate Amino Transferase 13 U/L (15-37); Bilirubin,Total 0.2 mg/dL (0.00-1.00); Blood Urea Nitrogen 15 mg/dL (7-18); Calcium 8.7 mg/dL (8.5-10.1); Carbon Dioxide 30 mmol/L (21-32); Estimated CRCL calculation 95 ml/min; Estimated Glomerular Filt Rate > 60; Glucose 140 mg/dL (70-99); Total Protein 6.8 g/dL (6.4-8.2); Troponin I 4.6 ng/L (0.00-60.4)
[2021-03-06 03:16] LABS: Anion Gap 10 mmol/L (8-16); Chloride 102 mmol/L (98-108); Osmolality Calculated 296 mOsm/kg (285-295); Potassium 3.8 mmol/L (3.5-5.1); Sodium 142 mmol/L (136-145)
[2021-03-06 03:17] LABS: CRP 0.2 mg/dL (0.0-0.9)
[2021-03-06] MEDS: traMADol HCL (*CRX) 50 MG TABLET PO (04:25)
[2021-03-06 04:46] VITALS: BP 136/88; PULSE 87; RESP 20; TEMP 36.6; O2SAT 98
== END 2021-03-06 04:47 | disposition home or self-care (01) ==
PROVIDERS: Emergency Provider Emergency Medicine; PCP Family Medicine
DX: M48.02 Spinal stenosis, cervical region (principal); M54.12 Radiculopathy, cervical region; J45.909 Unspecified asthma, uncomplicated; E78.5 Hyperlipidemia, unspecified; E53.8 Deficiency of other specified B group vitamins; E55.9 Vitamin D deficiency, unspecified; E66.01 Morbid (severe) obesity due to excess calories; Z90.49 Acquired absence of other specified parts of digestive tract; M19.90 Unspecified osteoarthritis, unspecified site; Z86.718 Personal history of other venous thrombosis and embolism; Z90.710 Acquired absence of both cervix and uterus; Z87.891 Personal history of nicotine dependence
CPT/HCPCS: 36415; 72125; 80053; 84484; 85025; 85380; 85610; 86140; 93005; 99283; 99284; A9270

== ENCOUNTER 2021-03-06 09:45 | Outpatient (CLI) | payer OTHER, SELFPAY ==
--- NOTE | ~2021-03-06 | XR_ITS ---
XR shoulder LT min 2V DATE: 03/06/2021 10:07 INDICATION: Posterior shoulder pain. No recent injury. TECHNIQUE: 5 views COMPARISON: None FINDINGS: No fracture or dislocation, periosteal reaction or bone destruction. There is spurring of t he inferior articular margin of the clavicle at the acromioclavicular joint. No abnormal soft tissue calcification of the left shoulder. IMPRESSION: Inferior articular spurring of the left clavicle at the acromioclavicular joint Reviewed, dictated and finalized at location A. IMPRESSION: Inferior articular spurring of the left clavicle at the acromioclav icular joint
== END 2021-03-06 09:46 | disposition home or self-care (01) ==
PROVIDERS: PCP Family Medicine; Visit Provider Family Medicine
DX: M25.519 Pain in unspecified shoulder (principal); M54.10 Radiculopathy, site unspecified
CPT/HCPCS: 73030

== ENCOUNTER 2021-03-07 06:53 | Outpatient (CLI) | payer OTHER, SELFPAY ==
--- NOTE | ~2021-03-07 | MR_ITS ---
EXAMINATION: MR cervical spine wo con EXAM DATE: 03/07/2021 07:46 INDICATION: M54.10 - Radiculopathy, site unspecified. Neck pain rating down left arm. TECHNIQUE: Multi-sequential, multiplanar MR images of the cervical spine were obtained without contra st. Notation was made the patient was unable to complete the protocol, no axial images were obtained. Sagittal T1, T2, T2 fat saturation images also obtained. Correlation is made to CT cervical spine . FINDINGS: Minimal disc bulges at C3-4 and 4-5, mild at C5-6 and 6-7 which appear to indent the anteri or aspect of the spinal cord, with perceptual central canal between these 2 disc bulges, at the C6 le desmond, but no cord edema suspected. The disc and vertebral body heights are maintained. The vertebral b odies are aligned in the AP dimension. Cervicomedullary junction is normal in appearance. There are n o suspicious marrow signal abnormalities. Paraspinal soft tissue is unremarkable. There is evidence of moderate to severe cervical facet arthropathy. At C5-6 there is moderate to geovanna re right, mild to moderate left neural foraminal stenosis. At C6-7 there is moderate to severe left, moderate right neural foraminal stenosis. Probable moderate bilateral neural foraminal stenosis at C3 -4. IMPRESSION: 1. Incomplete exam, sagittal images only. 2. Chronic cord indentations from disc bulges at C5-6 and 6-7 with the left C6-7 neural foramina and the right C5-6 neural foramina probably most narrowed on exam. Reviewed, dictated and finalized at location A. IMPRESSION: 1. Incomplete exam, sagittal images only. 2. Chronic cord indentations from disc bulges at C5-6 and 6-7 with the left C6- 7 neural foramina and the right C5-6 neural foramina probably most narrowed on exam.
== END 2021-03-07 06:54 | disposition home or self-care (01) ==
LOC: CHSIMG 06:54
PROVIDERS: PCP Family Medicine; Visit Provider Family Medicine
DX: M54.10 Radiculopathy, site unspecified (principal); M48.02 Spinal stenosis, cervical region
CPT/HCPCS: 72141

== ENCOUNTER 2021-04-11 08:18 | Outpatient (CLI) | payer OTHER, SELFPAY ==
[2021-04-11 08:56] LABS: INR 1.6; Prothrombin Time 16.9 Seconds (9.50-12.10)
== END 2021-04-11 08:19 | disposition home or self-care (01) ==
LOC: CHSLAB 08:19
PROVIDERS: PCP Family Medicine; Visit Provider Family Medicine
DX: Z86.718 Personal history of other venous thrombosis and embolism (principal)
CPT/HCPCS: 36415; 85610

== ENCOUNTER 2021-05-15 08:37 | Outpatient (CLI) | payer OTHER, SELFPAY ==
--- NOTE | ~2021-05-15 | XR_ITS ---
XR chest 2V 05/15/2021 15:14 Indication: Encounter for preprocedural examination Procedure: PA and lateral views chest Comparison: Comparison to multiple prior studies sequentially, with oldest reviewed study dated 07/23. Findings: There is left basilar atelectasis. Heart size normal. No focal pneumonia, edema, pleural ef fusion or pneumothorax. Impression: 1: Left basilar atelectasis. Reviewed, dictated and finalized at location A. P DEBURRER Impression: 1: Left basilar atelectasis.
--- NOTE | 2021-05-15 08:52 | ECG_ITS ---
Measurements Intervals [place] Rate: 95 P: 62 UT: 158 QRS: 51 QRSD: 90 T: 87 QT: 336 QTc: 423 Interpretive Statements SINUS RHYTHM MINIMAL Q WAVES- INFERIOR LEADS BORDERLINE T WAVE ABNORMALITY- HIGH LATERAL LEADS BORDERLINE ECG Electronically Signed On 05-15-2021 9:15:17 [employer] by Derik Luna D.O.
[2021-05-15 08:53] LABS: Hematocrit 40.7 % (35.0-49.0); Mean Corpuscular HGB Conc 34.4 g/dL (32.0-36.0); Mean Corpuscular Volume 81.4 fL (78.0-102.0); Mean Platelet Volume 9.7 fl (9.2-11.8); Platelet Count Result 281 K/mm3 (150-420); White Blood Count 6.6 K/mm3 (4.8-10.8)
[2021-05-15 09:09] LABS: Hemoglobin A1C 6.8 % (<5.7)
[2021-05-15 09:12] LABS: INR 3.2; Prothrombin Time 32.1 Seconds (9.50-12.10)
[2021-05-15 09:18] LABS: Alanine Aminotransferase 25 U/L (14-59); Albumin Level 3.5 g/dL (3.4-5.0); Alkaline Phosphatase 85 U/L (46-116); Anion Gap 11 mmol/L (8-16); Aspartate Amino Transferase 15 U/L (15-37); Bilirubin,Total 0.3 mg/dL (0.00-1.00); Blood Urea Nitrogen 14 mg/dL (7-18); Calcium 8.8 mg/dL (8.5-10.1); Carbon Dioxide 29 mmol/L (21-32); Chloride 102 mmol/L (98-108); Estimated Glomerular Filt Rate > 60; Glucose 114 mg/dL (70-99); Osmolality Calculated 295 mOsm/kg (285-295); Potassium 4.2 mmol/L (3.5-5.1); Sodium 142 mmol/L (136-145); Total Protein 6.9 g/dL (6.4-8.2)
[2021-05-15 14:59] LABS: Add Urine Microscopic? NO; Appearance Urine Clear (Clear); Bilirubin Urine Negative (Negative); Blood Urine Negative (Negative); Color Urine Yellow (Yellow); Glucose Urine UA Negative (Negative); Ketones Urine Negative (Negative); Leukocyte Esterase Ur Negative (Negative); Nitrate Urine Negative (Negative); Protein Urine Negative (Negative); Specific Grav Ur 1.025 (1.010-1.020); Urobilinogen Urine 0.2 mg/dL (0.2-1.0); pH Urine 6.5 (5.0-8.0)
== END 2021-05-15 08:38 | disposition home or self-care (01) ==
PROVIDERS: PCP Family Medicine; Visit Provider Family Medicine
DX: Z01.810 Encounter for preprocedural cardiovascular examination (principal); E11.9 Type 2 diabetes mellitus without complications
CPT/HCPCS: 36415; 71046; 80053; 81003; 83036; 85027; 85610; 93005

== ENCOUNTER 2021-06-14 14:05 | Emergency (ER) | payer OTHER, SELFPAY ==
[2021-06-14 14:20] VITALS: BP 109/67; PULSE 84; RESP 20; TEMP 36.7; O2SAT 96
[2021-06-14 15:27] LABS: Basophils Absolute Auto 0.06 K/mm3 (0.00-0.10); Basophils Percent Auto 0.8 % (0.0-1.0); Eosinophils Absolute Auto 0.19 K/mm3 (0.02-0.50); Eosinophils Percent Auto 2.6 % (1.0-6.0); Hematocrit 37.3 % (35.0-49.0); Hemoglobin 12.2 g/dL (12.0-15.0); Immature Granulocyte Absolute 0.02 K/mm3 (0.00-0.00); Immature Granulocyte Percent A 0.3 % (0.0-0.0); Lymphocytes Absolute Auto 3.37 K/mm3 (1.10-4.50); Lymphocytes Percent Auto 45.3 % (18.0-42.0); Mean Corpuscular HGB Conc 32.7 g/dL (32.0-36.0); Mean Corpuscular Hemoglobin 28.2 pg (27.0-31.0); Mean Corpuscular Volume 86.1 fL (78.0-102.0); Mean Platelet Volume 10.4 fl (9.2-11.8); Monocytes Absolute Auto 0.62 K/mm3 (0.10-0.90); Monocytes Percent Auto 8.3 % (2.0-11.0); Neutrophils Absolute Auto 3.2 K/mm3 (1.7-7.2); Neutrophils Percent Auto 42.7 % (50.0-70.0); Platelet Count Result 282 K/mm3 (150-420); Red Blood Count 4.33 M/mm3 (4.20-5.40); Red Cell Distribution Width 13.4 % (11.6-14.4); White Blood Count 7.4 K/mm3 (4.8-10.8)
--- NOTE | 2021-06-14 15:35 | ED.GENADULT ---
HPI - General Adult General Chief complaint: Extremity Problem,Nontraumatic Stated complaint: pain after surgery Source: patient Mode of arrival: ambulatory Limitations: no limitations History of Present Illness HPI narrative: this is a 60-year-old female with a history a DVT he has recently had spinal cervical spinal fusion was having some swelling in her ankles and called surgeon and he advised her to come to the emergency department to be evaluated. The patient currently has no discomfort some mild swelling in the in the feet bilaterally with no calf pain no calf tenderness no calf swelling no redness or erythema, no shortness of breath no fever chills no chest pain. Onset (ago): hour(s) Related Data Allergies Allergy/AdvReac Type Severity Reaction Status Date / Time hydrocodone [Vicodin] Allergy Intermediate Unknown Verified 05/22/21 08:05 [facility] Past Medical History Medical History Asthma History of DVT (deep vein thrombosis) Hyperlipidemia Obesity, morbid, BMI 40.0-49.9 Surgical History Surgical History H/O section History of cholecystectomy 2004 History of hysterectomy Family History Family History Other Family history of type 2 diabetes mellitus Hypertension Social History Social History Smoking packs per day: 1.5 Smoking cigarettes per day: 30.0 Years smoked: 35 Smoking pack-years: 52.50 Smoking status: Former smoker Tobacco type: cigarettes Additional smoking assessment comments: Quit 2009. Over 30 pack-year history Alcohol intake: never Substance use type: does not use Additional occupation/education comments: [employer]. Spiritual care concerns: No Exam Const: General: no acute distress Orientation/consciousness: patient oriented x3 HENMT: Head: normal to inspection Eyes: Conjunctivae: conjunctivae normal Pupils: Equal, round and reactive pupils present EOM: EOMs intact bilaterally Neck: Neck: normal visual inspection Chest: Chest palpation & inspection: normal inspection of the chest Resp: Effort & Inspection: normal respiratory effort Auscultation: clear to auscultation bilaterally Cardio: Rate: regular rate Rhythm: regular rhythm GI: GI Palp: Yes Soft to palpation Percussion: Yes normal to percussion : General: Yes no CVA tenderness Back/Spine/Pelvis: Back: no CVA tenderness Skin: General skin exam: normal color Rashes: no rashes Wounds: no wounds Neuro: General: patient oriented x3, moves all extremities, no meningeal signs and no focal motor deficits Extrem: General: normal to inspection and edema Other: Mild edema in the feet it does not extend past the the ankle with no calf pain no calf swelling no redness no erythema and calves are equal bilaterally Psych: Mental Status: mental status grossly normal Affect: normal affect Course Course Emergency Course: labs reviewed with patient Medical Decision Making Lab Data Result diagrams: 06/14/21 15:01 06/14/21 15:01 Labs: Lab Results 06/14/21 06/14/21 06/14/21 Range/Units 15:01 15:01 15:06 WBC Pending RBC Pending Hgb Pending Hct Pending MCV Pending MCH Pending MCHC Pending RDW Pending Plt Count Pending MPV Pending Immature Gran % (Auto) Pending Neut % (Auto) Pending Lymph % (Auto) Pending [place] % (Auto) Pending Eos % (Auto) Pending Baso % (Auto) Pending Lymph # (Auto) Pending [place] # (Auto) Pending Eos # (Auto) Pending Baso # (Auto) Pending Abs Immat Gran (auto) Pending Absolute Neuts (auto) Pending Absolute Nucleated RBC Pending Nucleated RBC % Pending PT Pending INR Pending
[2021-06-14 15:41] LABS: Prothrombin Time 10.4 Seconds (9.50-12.10)
[2021-06-14 15:42] LABS: Alanine Aminotransferase 51 U/L (14-59); Albumin Level 3.1 g/dL (3.4-5.0); Alkaline Phosphatase 75 U/L (46-116); Anion Gap 8 mmol/L (8-16); Aspartate Amino Transferase 17 U/L (15-37); Bilirubin,Total 0.2 mg/dL (0.00-1.00); Blood Urea Nitrogen 14 mg/dL (7-18); Calcium 8.8 mg/dL (8.5-10.1); Carbon Dioxide 31 mmol/L (21-32); Chloride 101 mmol/L (98-108); Estimated CRCL calculation 84 ml/min; Estimated Glomerular Filt Rate > 60; Glucose 99 mg/dL (70-99); Osmolality Calculated 290 mOsm/kg (285-295); Potassium 4.1 mmol/L (3.5-5.1); Sodium 140 mmol/L (136-145); Total Protein 6.5 g/dL (6.4-8.2)
[2021-06-14 16:14] VITALS: BP 110/67; PULSE 72; RESP 20; TEMP 37; O2SAT 94
== END 2021-06-14 16:15 | disposition home or self-care (01) ==
PROVIDERS: Emergency Provider Emergency Medicine; PCP Family Medicine
DX: Z86.718 Personal history of other venous thrombosis and embolism (principal)
CPT/HCPCS: 36415; 80053; 85025; 85610; 99282; 99283

== ENCOUNTER 2021-07-13 12:28 | Outpatient (RCR) | payer OTHER, SELFPAY ==
[2021-04-18 09:10] LABS: INR 3.2; Prothrombin Time 32.5 Seconds (9.50-12.10)
[2021-04-30 11:56] LABS: INR 4.2; Prothrombin Time 41.7 Seconds (9.50-12.10)
[2021-05-07 12:02] LABS: INR 2.7; Prothrombin Time 27.2 Seconds (9.50-12.10)
[2021-06-18 12:51] LABS: INR 2.2
[2021-06-26 10:45] LABS: Prothrombin Time 75.6 Seconds (9.50-12.10)
[2021-06-26 10:48] LABS: INR 7.8
[2021-06-28 12:40] LABS: INR 3.7; Prothrombin Time 36.8 Seconds (9.50-12.10)
[2021-07-10 09:00] LABS: Prothrombin Time 65.5 Seconds (9.50-12.10)
[2021-07-10 09:18] LABS: INR 6.7
[2021-07-13 12:52] LABS: INR 1.6; Prothrombin Time 16.7 Seconds (9.50-12.10)
== END 2021-07-17 23:59 | disposition home or self-care (01) ==
LOC: CHSLAB 12:28
PROVIDERS: PCP Family Medicine; Visit Provider Family Medicine
DX: Z86.718 Personal history of other venous thrombosis and embolism (principal)
CPT/HCPCS: 36415; 85610

== ENCOUNTER 2021-07-23 14:37 | Outpatient (RCR) | payer OTHER, SELFPAY ==
--- NOTE | 2021-07-23 16:20 | PTOPEVAL ---
Thank you for referring Brianna Stover to [facility].? The patient is scheduled to be seen for therapy? __3__x/week for 12 visits. Please review, sign, date and return this plan of care MORALES. I agree with and certify that the following plan of care is medically necessary. Referring Physician Date Admitting Provider: Attending Provider: LAURA MOSS Referring Provider: *PT Outpatient Evaluation Start: 07/23/21 14:48 Freq: Status: Active Protocol: Document 07/23/21 14:45 JOSE (Rec: 07/23/21 16:19 JOSE [email or web address]) Therapy Assessment Status Assessment Status Assessment Status Evaluation Outpatient Past Medical History Cardiovascular History Hx Deep Vein Thrombosis Yes: ayla lower legs Respiratory History Hx Asthma Yes Gastrointestinal History Hx Cholecystectomy Yes Musculoskeletal History Hx Orthopedic Surgery Yes: carpal tunnel Hx Spinal Surgery Yes: spinal fusion 06-11-21 Endocrine History Hx Diabetes Yes Reproductive History Hx Section Yes Hx Post Menopausal Yes Evaluation Information Problem Diagnosis C5-C7 ACDF Onset 06/11/21 Subjective Information Pt. reports she underwent Query Text:As Reported By Patient/ surgery on 06/11/21. She Family report she has not been performing an specific exercise except walking. She reports that that she has to be able to lift 25# to return to work, but cannot lift signficant weight due to neck pain. She reports that she still notices popping in the neck. She does have regular burning pain in her neck. Pt. reports her goal for therpay is to decrease her pain and be able to lift 25# for return to work. 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
--- NOTE | 2021-08-17 16:47 | PTOPEVAL ---
Thank you for referring Brianna Stover to [facility].? The patient is scheduled to be seen for therapy? ____x/week for ___ weeks. Please review, sign, date and return this plan of care MORALES. I agree with and certify that the following plan of care is medically necessary. Referring Physician Date Admitting Provider: Attending Provider: LAURA MOSS Referring Provider: *PT Outpatient Evaluation Start: 07/23/21 14:48 Freq: Status: Active Protocol: Document 08/17/21 15:39 [facility] [email or web address]] (Rec: 08/17/21 16:46 [facility] [email or web address] [email or web address]) Therapy Assessment Status Assessment Status Assessment Status Discharge Outpatient Past Medical History Cardiovascular History Hx Deep Vein Thrombosis Yes: ayla lower legs Respiratory History Hx Asthma Yes Gastrointestinal History Hx Cholecystectomy Yes Musculoskeletal History Hx Orthopedic Surgery Yes: carpal tunnel Hx Spinal Surgery Yes: spinal fusion 06-11-21 Endocrine History Hx Diabetes Yes Reproductive History Hx Section Yes Hx Post Menopausal Yes Evaluation Information Problem Diagnosis C5-C7 ACDF Onset 06/11/21 Subjective Information patient reports she is a bit Query Text:As Reported By Patient/ sore today. she reports she is Family ready to be done with therapy . she reports her soreness is just from the rainy weather today. Pain Assessment Timing of Pain Assessment Timing of Pain Assessment Assessment Pain Scale Pain Scale Used Numeric (1 - 10) Self Report Pain Assessment Lower Back Reported Pain Level 3 Neck Reported Pain Level 3 Pain Score Pain Score 3,3: Self Report Interventions Used Interventions Used By Clinicians Activity or ADL's,Education, Electrical Stimulation, Exercise,Heat Cervical and Lumbar ROM Cervical ROM Cervical Flexion (0-60) 50 Query Text:Active in Degrees Cervical Extension (0-70) 30 Query Text:Active in Degrees Cervical Lateral Flexion Right (0-50) 35 Query Text:Active in Degrees Cervical Lateral Flexion Left (0-50) 25 Query Text:Active in Degrees Cervical Rotation Right (0-90) 80 Query Text:Active in Degrees Cervical Rotation Left (0-90) 55 Query Text:Active in Degrees Upper Extremity Muscle Strength Testing General Upper Extremity Strength Gross Upper Extremity Strength Comments -Chainstitch Binder strength in position 2 is 69.9 lbs on the right and41 .2 lbs on the left
== END 2021-08-17 23:59 | disposition home or self-care (01) ==
LOC: CHSPT 14:37
DX: M47.12 Other spondylosis with myelopathy, cervical region (principal)
CPT/HCPCS: 97014; 97110; 97112; 97140; 97161; G0283

== ENCOUNTER 2021-08-28 14:24 | Outpatient (RCR) | payer OTHER, SELFPAY ==
[2021-07-23 14:53] LABS: INR 2.1; Prothrombin Time 21.4 Seconds (9.50-12.10)
[2021-08-17 09:17] LABS: INR 3.3; Prothrombin Time 33.5 Seconds (9.50-12.10)
[2021-08-28 14:50] LABS: INR 2.7; Prothrombin Time 27.1 Seconds (9.50-12.10)
== END 2021-10-21 23:59 | disposition home or self-care (01) ==
LOC: CHSLAB 14:24
PROVIDERS: PCP Family Medicine; Visit Provider Family Medicine
DX: Z86.718 Personal history of other venous thrombosis and embolism (principal)
CPT/HCPCS: 36415; 85610

== ENCOUNTER 2021-12-24 15:28 | Outpatient (RCR) | payer OTHER, SELFPAY ==
--- NOTE | 2021-12-25 07:02 | PTOPEVAL ---
Thank you for referring Brianna Stover to [facility].? The patient is scheduled to be seen for therapy? 2x/week for 8 visits. Please review, sign, date and return this plan of care MORALES. I agree with and certify that the following plan of care is medically necessary. Referring Physician Date Admitting Provider: Attending Provider: Jorge Luis Coronel, PA Referring Provider: *PT Outpatient Evaluation Start: 12/24/21 15:06 Freq: Status: Active Protocol: Document 12/24/21 15:06 [facility] (Rec: 12/24/21 17:10 [facility] [id number]) Therapy Assessment Status Assessment Status Assessment Status Evaluation Outpatient Past Medical History Cardiovascular History Hx Deep Vein Thrombosis Yes: ayla lower legs Respiratory History Hx Asthma Yes Gastrointestinal History Hx Cholecystectomy Yes Musculoskeletal History Hx Orthopedic Surgery Yes: carpal tunnel Hx Spinal Surgery Yes: spinal fusion 06-11-21 Endocrine History Hx Diabetes Yes Reproductive History Hx Section Yes Hx Post Menopausal Yes Evaluation Information Problem Diagnosis L RTC tendonitis Onset 03/02/2021 Subjective Information Pt reports L shoulder, neck, Query Text:As Reported By Patient/ and arm pain since last Family March. She had a spinal fusion (C5-C7) last March which resolved her cervical symptoms however did not relieve her shoulder and arm symptoms. She sees her neurosurgeon tomorrow for her check up. Has burning and pain in her L that stops just above the elbow (wraps around to the front). Radicular symptoms not always present, just when worse. Has had injection on 12/10 with only 1 hour of relief. Lifting the arm increases symptoms into the arm. Constant and popping pain in L shoulder that worsens with lifting and reaching behind the back. Has not been sleeping well, likes to sleep on left side. Reports that she sometimes drops objects. Reports pain got better with PT but never went away. She
--- NOTE | 2022-01-23 15:04 | PTOPEVAL ---
Thank you for referring Brianna Stover to [facility].? The patient is scheduled to be seen for therapy? ____x/week for ___ weeks. Please review, sign, date and return this plan of care MORALES. I agree with and certify that the following plan of care is medically necessary. Referring Physician Date Admitting Provider: Attending Provider: Jorge Luis Coronel, PA Referring Provider: *PT Outpatient Evaluation Start: 12/24/21 15:06 Freq: Status: Active Protocol: Document 01/23/22 14:00 [facility] (Rec: 01/23/22 15:03 [facility] [id number]) Therapy Assessment Status Assessment Status Assessment Status Re-evaluation Outpatient Past Medical History Cardiovascular History Hx Deep Vein Thrombosis Yes: ayla lower legs Respiratory History Hx Asthma Yes Gastrointestinal History Hx Cholecystectomy Yes Musculoskeletal History Hx Orthopedic Surgery Yes: carpal tunnel Hx Spinal Surgery Yes: spinal fusion 06-11-21 Endocrine History Hx Diabetes Yes Reproductive History Hx Section Yes Hx Post Menopausal Yes Evaluation Information Problem Diagnosis L RTC tendonitis Onset 03/02/2021 Additional Evaluation Detail quick dash = 70% functionally declined Subjective Information patient reports she is in a Query Text:As Reported By Patient/ flare up of pain. 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 she reports since then her L shoulder pain has been 8/10. she reports she would like to continue therapy to continue to get better as it was prior to return to register work. patient reports increased pain and difficulty with reaching across body and out in front/side of her body . Pain Assessment Timing of Pain Assessment Timing of Pain Assessment Assessment Pain Scale Pain Scale Used Numeric (1 - 10) Self Report Pain Assessment Left Shoulder(s) Reported Pain Level 8 Pain Score Pain Score 8: Self Report Interventions Used Interventions Used By Clinicians Activity or ADL's,Education, Electrical Stimulation, Exercise,Heat Upper Extremity Range of Motion General Upper Extremity Range of Motion Gross Upper Extremity Range of Motion prom L shoulder flex = 160 Comments degrees
== END 2022-02-28 08:55 | disposition home or self-care (01) ==
LOC: CHSPT 15:28
PROVIDERS: Visit Provider Physician Assistant
DX: M75.82 Other shoulder lesions, left shoulder (principal); M19.012 Primary osteoarthritis, left shoulder
CPT/HCPCS: 97014; 97110; 97140; 97162; G0283

== ENCOUNTER 2022-02-22 15:29 | Emergency (ER) | payer OTHER, SELFPAY ==
[2022-02-22 15:42] VITALS: BP 127/79; PULSE 86; RESP 16; TEMP 36.5; O2SAT 98
--- NOTE | 2022-02-22 15:58 | ED.WOUNDLAC ---
HPI - Wound/Laceration General Chief Complaint: Wound/Laceration Stated Complaint: Right Pinky finger swollen Time Seen by Provider: 02/22/22 15:34 Source: patient and RN notes reviewed Mode of arrival: ambulatory Limitations: no limitations History of Present Illness Onset (ago): day(s) (2) Location: other (medial right hand 5th MCP joint.) Extremity Location: Right: hand Place: home Patient tetanus UTD: Yes Context: other (insect bite. ) Related Data Allergies Allergy/AdvReac Type Severity Reaction Status Date / Time hydrocodone [Vicodin] Allergy Intermediate Hypotension Verified 02/22/22 15:46 Review of Systems Review of Systems: All systems reviewed & are unremarkable except as noted in HPI and below Constitutional: Constitutional: Reports no additional constitutional complaints Eyes: Eyes: Reports no additional eye complaints ENT: Reports system reviewed and no additional complaints, except as documented Cardiovascular: Cardiovascular: Reports no additional cardiovascular complaints Respiratory: Respiratory: Reports no additional respiratory complaints Gastrointestinal: Gastrointestinal: Reports no additional gastrointestinal complaints Genitourinary: Genitourinary: Reports no additional female genitourinary complaints Musculoskeletal: Musculoskeletal: Reports no additional musculoskeletal complaints Comments: insect bite to right hand. Integumentary/Breasts: Skin/Breast: Reports system reviewed and no additional complaints, except as docu Neurologic: Reports system reviewed and no additional complaints, except as documented Psychiatric: Psychiatric: Reports no additional psychiatric complaints Endocrine: Endocrine: Reports no additional endocrine complaints Hematologic/Lymphatic: Hematologic/Lymphatic: Reports no additional hematologic/lymphatic complaints Allergic/Immunologic: Allergic/Immunologic: Reports no additional allergic/immunologic complaints PMFSH Past Medical History Medical History Asthma History of DVT (deep vein thrombosis) Hyperlipidemia Insect bite Obesity, morbid, BMI 40.0-49.9 Surgical History Surgical History H/O section History of cholecystectomy 2004 History of hysterectomy Family History Family History Other Family history of type 2 diabetes mellitus Hypertension Social History Social History Smoking packs per day: 1.5 Smoking cigarettes per day: 30.0 Years smoked: 35 Smoking pack-years: 52.50 Smoking status: Former smoker Tobacco type: cigarettes Additional smoking assessment comments: Quit 2010. Over 30 pack-year history Alcohol intake: never Substance use type: does not use Additional occupation/education comments: [employer]. Spiritual care concerns: No Exam Const: General: healthy appearing and no acute distress Nutritional Appearance: well nourished Orientation/consciousness: patient oriented x3 Limitations: no limitations HENMT: Head: normal to inspection Ears: external ears normal, TM's normal bilaterally and EAC's normal General nose exam: Normal external nose present and Normal nares present Face and sinus: normal facial exam and sinuses nontender Mouth: Yes Normal oral and palatal mucosa present and Yes moist mucous membranes Teeth and gingiva: dentition normal Throat: posterior oropharynx normal Eyes: Conjunctivae: conjunctivae normal Pupils: Equal, round and reactive pupils present EOM: EOMs intact bilaterally Neck: Neck: normal visual inspection, no lymphadenopathy and no meningeal signs Chest: Chest palpation & inspection: normal inspection of the chest Resp: Effort & Inspection: normal respiratory effort Auscultation: clear to auscultation bilaterally Cardio: Rate:
[2022-02-22 16:26] VITALS: BP 127/79; PULSE 86; RESP 16; TEMP 36.5; O2SAT 98
== END 2022-02-22 16:27 | disposition home or self-care (01) ==
LOC: CHSED 16:17
PROVIDERS: Emergency Provider Emergency Medicine; PCP Family Medicine
DX: S60.561A Insect bite (nonvenomous) of right hand, initial encounter (principal); W57.XXXA Bitten or stung by nonvenomous insect and other nonvenomous arthropods, initial encounter
CPT/HCPCS: 99283

== ENCOUNTER 2022-05-06 08:11 | Outpatient (RCR) | payer MEDICAID, SELFPAY ==
[2022-05-06 08:48] LABS: INR 2.8; Prothrombin Time 28.2 Seconds (9.50-12.10)
== END 2022-08-04 23:59 | disposition home or self-care (01) ==
LOC: CHSLAB 08:11
PROVIDERS: PCP Family Medicine; Visit Provider Family Medicine
DX: Z86.718 Personal history of other venous thrombosis and embolism (principal)
CPT/HCPCS: 36415; 85610

== ENCOUNTER 2022-09-09 19:33 | Emergency (ER) | payer OTHER, SELFPAY ==
--- NOTE | ~2022-09-09 | XR_ITS ---
EXAMINATION: XR chest 1V portable Exam Date/Time: 09/09/2022 20:57 CDT HISTORY: FEVER, COUGH, SORE THROAT, BILATERAL CHEST PAIN TODAY. Comparison: 05/15/2021. RESULT: Lines, tubes, and devices: Incompletely visualized cervical fusion hardware. Lungs and pleura: Left hemidiaphragm elevation. Minimal bibasilar scar/atelectasis. No focal consoli dation, pleural effusion or pneumothorax. Cardiomediastinal silhouette: Stable. Other: No acute osseous or upper abdominal finding. IMPRESSION: No acute cardiopulmonary process. Reviewed, dictated and finalized at location K.
[2022-09-09 19:47] VITALS: BP 163/90; PULSE 107; RESP 20; TEMP 38.4; O2SAT 97
--- NOTE | 2022-09-09 20:00 | ED.GENADULT ---
HPI - General Adult General Chief complaint: Shortness of Breath/Dyspnea Stated complaint: sore throat Time Seen by Provider: 09/09/22 19:49 History of Present Illness HPI narrative: the patient is a 61-year-old woman with history of asthma, DVT, on warfarin, obesity, diabetes, hyperlipidemia, osteoarthritis. She is vaccinated against COVID-19. She is not contracted COVID-19. Since 7:00 a.m. today, the patient has had upper respiratory tract infection symptoms consisting of a cough productive of yellow sputum, occasional wheezing but has not needed to use her inhaler, rhinorrhea, nasal congestion, sore throat, with more recently over the last few hours fevers, chills, diaphoresis. She has been taking ibuprofen and Tylenol as well as Robitussin all day. She last took Tylenol at 4:00 p.m.. , along with Robitussin. No chest pain except when she coughs. No abdominal pain. No nausea or vomiting. No dysuria or urinary urgency or frequency. No back pain. Her daughter and her grandson have had upper respiratory tract infection symptoms during the last week and she has been with them. No other complaints. Related Data Allergies Allergy/AdvReac Type Severity Reaction Status Date / Time hydrocodone [Vicodin] Allergy Intermediate Hypotension Verified 09/09/22 20:59 Review of Systems Review of Systems: All systems reviewed & are unremarkable except as noted in HPI and below Constitutional: Constitutional: Reports as per HPI, Reports no additional constitutional complaints, Reports chills, Reports excessive sweating, Reports fatigue, Reports fever(s), Denies headache(s) and Reports weakness Eyes: Eyes: Reports as per HPI, Reports no additional eye complaints, Denies change in vision and Denies photophobia ENT: Reports system reviewed and no additional complaints, except as documented, Reports as per HPI, Denies dysphagia, Denies vertigo, Denies dizziness, Denies headache(s), Denies lip swelling, Reports nasal congestion, Reports sore throat, Denies throat swelling and Denies tongue swelling Cardiovascular: Cardiovascular: Reports as per HPI, Reports no additional cardiovascular complaints, Denies chest pain, Denies syncope, Denies rapid heart rate and Denies dyspnea Respiratory: Respiratory: Reports as per HPI, Reports no additional respiratory complaints, Reports chest congestion, Reports cough, Denies dyspnea and Reports wheezing Gastrointestinal: Gastrointestinal: Reports as per HPI, Reports no additional gastrointestinal complaints, Denies abdominal pain, Denies constipation, Denies dysphagia, Denies diarrhea, Denies nausea and Denies vomiting Genitourinary: Genitourinary: Reports as per HPI, Denies hematuria, Denies urinary frequency, Denies dysuria, Denies urinary incontinence and Denies urinary urgency Musculoskeletal: Musculoskeletal: Reports no additional musculoskeletal complaints, Denies back pain, Reports myalgias, Denies arthralgias, Denies joint swelling and Denies numbness Integumentary/Breasts: Skin/Breast: Reports system reviewed and no additional complaints, except as docu, Denies pruritus, Denies erythema, Denies rash and Denies skin ulcer Neurologic: Reports system reviewed and no additional complaints, except as documented, Reports as per HPI, Denies confusion, Denies vertigo, Denies dizziness, Denies syncope, Denies headache(s), Denies focal weakness, Denies numbness and Denies weakness Psychiatric: Psychiatric: Reports as per HPI, Denies anxiety, Denies confusion, Denies depression, Denies homicidal ideation and Denies suicidal ideation Endocrine: Endocrine: Reports no additional endocrine complaints, Denies excessive sweating, Reports fatigue, Denies polydipsia and Denies polyuria Hematologic/Lymphatic: Hematologic/Lymphatic: Reports no additional hematologic/lymphatic complaints, Denies easy bleeding and Denies easy bruising Allergic/Immunologic: Allergic/Immunologic: Reports no additional allergic/immunologic complaints, D
[2022-09-09] MEDS: IPRATROPIUM 0.5 MG/ALBUTEROL SULFATE 2.5 MG AMPUL.NEB 3 ML INHALATION (20:07)
[2022-09-09 20:08] VITALS: PULSE 101; RESP 20; O2SAT 95
[2022-09-09 20:16] VITALS: PULSE 96; RESP 20
[2022-09-09 20:34] LABS: Appearance Urine Clear (Clear); Bilirubin Urine Negative (Negative); Blood Urine Negative (Negative); Color Urine Light Yellow (Yellow); Glucose Urine UA Negative (Negative); Ketones Urine Negative (Negative); Leukocyte Esterase Ur Negative LEU/UL (Negative); Nitrate Urine Negative (Negative); Protein Urine Negative (Negative); Urobilinogen Urine 0.2 mg/dL (0.2-1.0)
[2022-09-09 20:36] LABS: Add Urine Microscopic? NO
[2022-09-09] MEDS: SODIUM CHLORIDE 0.9% IV 1,000 ML 999 ML IV CONT (20:49)
[2022-09-09] MEDS: ACETAMINOPHEN 500 MG TABLET 1000 MG PO (20:50)
[2022-09-09 20:56] LABS: Influenza A QL RT-PCR Negative (Negative); Influenza B QL RT-PCR Negative (Negative); RSV RNA, RT-PCR Negative (Negative); SARS-CoV-2 RNA PCR Negative (Negative); Strep Group A RT-PCR Not Detected (Negative)
[2022-09-09 20:58] LABS: Basophils Absolute Auto 0.06 K/mm3 (0.00-0.10); Basophils Percent Auto 0.5 % (0.0-1.0); Eosinophils Absolute Auto 0.27 K/mm3 (0.02-0.50); Eosinophils Percent Auto 2.1 % (1.0-6.0); Hematocrit 42.3 % (35.0-49.0); Hemoglobin 13.9 g/dL (12.0-15.0); Immature Granulocyte Absolute 0.06 K/mm3 (0.00-0.00); Immature Granulocyte Percent A 0.5 % (0.0-0.0); Lymphocytes Absolute Auto 2.77 K/mm3 (1.10-4.50); Lymphocytes Percent Auto 21.4 % (18.0-42.0); Mean Corpuscular HGB Conc 32.9 g/dL (32.0-36.0); Mean Corpuscular Hemoglobin 27.8 pg (27.0-31.0); Mean Corpuscular Volume 84.6 fL (78.0-102.0); Mean Platelet Volume 9.8 fl (9.2-11.8); Monocytes Absolute Auto 0.75 K/mm3 (0.10-0.90); Monocytes Percent Auto 5.8 % (2.0-11.0); Neutrophils Absolute Auto 9.1 K/mm3 (1.7-7.2); Neutrophils Percent Auto 69.7 % (50.0-70.0); Platelet Count Result 287 K/mm3 (150-420); Red Cell Distribution Width 13.1 % (11.6-14.4)
[2022-09-09 21:02] VITALS: BP 163/90; PULSE 108; RESP 20; TEMP 37.9; O2SAT 93
[2022-09-09 21:12] LABS: INR 3.2; Partial Thromboplastin Time 43.4 SEC (23.90-30.70); Prothrombin Time 31.9 Seconds (9.50-12.10)
[2022-09-09 21:15] LABS: Alanine Aminotransferase 25 U/L (14-59); Albumin Level 3.5 g/dL (3.4-5.0); Alkaline Phosphatase 79 U/L (46-116); Anion Gap 8 mmol/L (8-16); Aspartate Amino Transferase 17 U/L (15-37); Bilirubin,Total 0.4 mg/dL (0.00-1.00); Blood Urea Nitrogen 9 mg/dL (7-18); CRP 2.9 mg/dL (0.0-0.9); Calcium 8.8 mg/dL (8.5-10.1); Carbon Dioxide 30 mmol/L (21-32); Chloride 104 mmol/L (98-108); Estimated CRCL calculation 87 ml/min; Estimated Glomerular Filt Rate > 60; Glucose 145 mg/dL (70-99); Osmolality Calculated 295 mOsm/kg (285-295); Sodium 142 mmol/L (136-145); Total Protein 7.3 g/dL (6.4-8.2)
[2022-09-09 21:20] LABS: Lactic Acid Reflex 1.9 mmol/L (0.4-2.0)
[2022-09-09] MEDS: cefTRIAXone 2 GM/NS 100 ML 2 GM/100 ML BAG IVPB (21:20)
[2022-09-09 22:35] LABS: Erythrocyte Sedimentation Rate 24 mm/hr (0-20)
[2022-09-09 23:44] VITALS: BP 139/93; PULSE 104; RESP 17; TEMP 37.3; O2SAT 95
--- NOTE | 2022-09-16 12:03 | PC.NURSE ---
FINAL BLOOD CULTURE RESULTS X2 : NO GROWTH AFTER 5 DAYS
== END 2022-09-09 23:45 | disposition home or self-care (01) ==
PROVIDERS: Emergency Provider Emergency Medicine; PCP Family Medicine
DX: J06.9 Acute upper respiratory infection, unspecified (principal); D68.32 Hemorrhagic disorder due to extrinsic circulating anticoagulants; E11.9 Type 2 diabetes mellitus without complications; E78.5 Hyperlipidemia, unspecified; Z86.718 Personal history of other venous thrombosis and embolism; Z79.01 Long term (current) use of anticoagulants; Z87.891 Personal history of nicotine dependence; Z20.822 Contact with and (suspected) exposure to COVID-19
CPT/HCPCS: 36415; 71045; 80053; 81003; 83605; 85025; 85610; 85652; 85730; 86140; 87040; 87637; 87651; 94640; 96361; 96365; 96367; 99284; J0456; J0696; J7030

== ENCOUNTER 2023-01-05 08:32 | Emergency (ER) | payer OTHER, SELFPAY ==
--- NOTE | ~2023-01-05 | XR_ITS ---
EXAMINATION: XR ankle RT min 3V DATE: 01/05/2023 09:09 INDICATION: Lateral sided right ankle pain and swelling post twisting injury TECHNIQUE: Anteroposterior, oblique, mortise, and lateral views of the right ankle were obtained. COMPARISON: 10/14/2020 FINDINGS: Bone alignment is normal. Heterotopic ossicle near the tip the medial malleolus likely sequela of chr onic deltoid ligament sprain. Moderate-sized Achilles and plantar calcaneal spurs. Additional entheso phytes at the dorsal aspect of several of the tarsal bones and at the tip of the lateral malleolus. N o acute fracture. Minimal to mild polyarticular osteoarthritis at the right ankle and multiple joints the mid and hindfoot. No right ankle joint effusion. Soft tissue swelling about the ankle most promi nent over the lateral malleolus. IMPRESSION: 1. No right ankle joint effusion or acute osseous abnormality. Reviewed, dictated and finalized at location A.
[2023-01-05 08:34] VITALS: BP 155/89; PULSE 85; RESP 20; TEMP 37.1; O2SAT 98
--- NOTE | 2023-01-05 08:48 | ED.LOWEXIN ---
HPI - Extremity Injury (Lower) General Chief Complaint: Extremity Injury, Lower Stated Complaint: R ankle pain Time Seen by Provider: 01/05/23 08:35 Source: patient Mode of arrival: ambulatory Limitations: no limitations History of Present Illness HPI Narrative: Patient is a 62-year-old female with a right ankle pain and swelling after stepping in a hole in the backyard. She twisted her ankle and now has pain in the ankle with swelling. complaint: ankle injury Onset (ago): minute(s) (30) Injury: Right: ankle Type of Injury: eversion Place: home Severity: moderate Severity scale (1-10): 5 Relieving factors: immobilization Exacerbating factors: movement Context: walking Associated symptoms: snap/pop sensation, swelling and able to partially bear weight Other symptoms: none Treatments prior to arrival: NSAIDS Related Data Home Medications Medication Instructions Recorded Confirmed warfarin 4 mg tablet 4 mg PO DAILY 01/05/23 01/05/23 Allergies Allergy/AdvReac Type Severity Reaction Status Date / Time hydrocodone [Vicodin] Allergy Intermediate Hypotension Verified 01/05/23 08:59 Review of Systems Review of Systems: All systems reviewed & are unremarkable except as noted in HPI and below Constitutional: Constitutional: Reports no additional constitutional complaints Eyes: Eyes: Reports no additional eye complaints ENT: Reports system reviewed and no additional complaints, except as documented Cardiovascular: Cardiovascular: Reports no additional cardiovascular complaints Respiratory: Respiratory: Reports no additional respiratory complaints Gastrointestinal: Gastrointestinal: Reports no additional gastrointestinal complaints Genitourinary: Genitourinary: Reports no additional female genitourinary complaints Musculoskeletal: Musculoskeletal: Reports no additional musculoskeletal complaints Integumentary/Breasts: Skin/Breast: Reports system reviewed and no additional complaints, except as docu Neurologic: Reports system reviewed and no additional complaints, except as documented Psychiatric: Psychiatric: Reports no additional psychiatric complaints Endocrine: Endocrine: Reports no additional endocrine complaints Hematologic/Lymphatic: Hematologic/Lymphatic: Reports no additional hematologic/lymphatic complaints Allergic/Immunologic: Allergic/Immunologic: Reports no additional allergic/immunologic complaints PMFSH Past Medical History Medical History Asthma History of DVT (deep vein thrombosis) Hyperlipidemia Insect bite Obesity, morbid, BMI 40.0-49.9 Surgical History Surgical History H/O section History of cholecystectomy 2004 History of hysterectomy Family History Family History Other Family history of type 2 diabetes mellitus Hypertension Social History Social History Smoking packs per day: 1.5 Smoking cigarettes per day: 30.0 Years smoked: 35 Smoking pack-years: 52.50 Smoking status: Former smoker Tobacco type: cigarettes Additional smoking assessment comments: Quit 2009. Over 30 pack-year history Alcohol intake: never Substance use type: does not use Lack of Transportation: No Lack of Food: Never True Current Housing: I Have Housing Concerned About Future Housing: No Difficulty Paying Gas/Electric Bills: No Difficulty Paying for Meds: No Currently Unemployed: No Education: Trade/Vocational Certificate Difficulty w/ Childcare or Family Care: No Living arrangements: with family Occupation/Education: occupation Additional occupation/education comments: [employer]. Spiritual care concerns: No Exam Const: General: healthy appearing Nutritional Appearance: well nourished HENMT: Head: normal to
[2023-01-05 10:01] VITALS: BP 140/80; PULSE 80; RESP 20; TEMP 36.9; O2SAT 98
== END 2023-01-05 10:06 | disposition home or self-care (01) ==
PROVIDERS: Emergency Provider Emergency Medicine; PCP Family Medicine
DX: S93.401A Sprain of unspecified ligament of right ankle, initial encounter (principal); E78.5 Hyperlipidemia, unspecified; J45.909 Unspecified asthma, uncomplicated; Z86.718 Personal history of other venous thrombosis and embolism; Z79.01 Long term (current) use of anticoagulants; Z87.891 Personal history of nicotine dependence; X50.0XXA Overexertion from strenuous movement or load, initial encounter; Y92.007 Garden or yard of unspecified non-institutional (private) residence as the place of occurrence of the external cause
CPT/HCPCS: 73610; 99283

== ENCOUNTER 2023-01-20 12:36 | Emergency (ER) | payer OTHER, SELFPAY ==
[2023-01-20 12:36] VITALS: BP 133/81; PULSE 105; RESP 16; TEMP 37.3; O2SAT 94
[2023-01-20 13:40] LABS: Basophils Absolute Auto 0.06 K/mm3 (0.00-0.10); Basophils Percent Auto 0.4 % (0.0-1.0); Eosinophils Absolute Auto 0.12 K/mm3 (0.02-0.50); Eosinophils Percent Auto 0.8 % (1.0-6.0); Hematocrit 41.6 % (35.0-49.0); Hemoglobin 13.8 g/dL (12.0-15.0); Immature Granulocyte Absolute 0.05 K/mm3 (0.00-0.00); Immature Granulocyte Percent A 0.3 % (0.0-0.0); Lymphocytes Absolute Auto 2.62 K/mm3 (1.10-4.50); Lymphocytes Percent Auto 16.8 % (18.0-42.0); Mean Corpuscular HGB Conc 33.2 g/dL (32.0-36.0); Mean Corpuscular Hemoglobin 28.5 pg (27.0-31.0); Mean Corpuscular Volume 85.8 fL (78.0-102.0); Mean Platelet Volume 9.9 fl (9.2-11.8); Monocytes Percent Auto 7.7 % (2.0-11.0); Neutrophils Absolute Auto 11.6 K/mm3 (1.7-7.2); Platelet Count Result 264 K/mm3 (150-420); Red Blood Count 4.85 M/mm3 (4.20-5.40); Red Cell Distribution Width 13.2 % (11.6-14.4); White Blood Count 15.6 K/mm3 (4.8-10.8)
[2023-01-20 13:56] LABS: Alanine Aminotransferase 23 U/L (14-59); Albumin Level 3.1 g/dL (3.4-5.0); Alkaline Phosphatase 83 U/L (46-116); Anion Gap 7 mmol/L (8-16); Aspartate Amino Transferase 17 U/L (15-37); Bilirubin,Total 0.8 mg/dL (0.00-1.00); Blood Urea Nitrogen 13 mg/dL (7-18); Calcium 8.7 mg/dL (8.5-10.1); Carbon Dioxide 30 mmol/L (21-32); Chloride 100 mmol/L (98-108); Estimated CRCL calculation 77 ml/min; Estimated Glomerular Filt Rate > 60; Glucose 116 mg/dL (70-99); Magnesium 1.9 mg/dL (1.8-2.4); Osmolality Calculated 285 mOsm/kg (285-295); Potassium 3.7 mmol/L (3.5-5.1); Sodium 137 mmol/L (136-145); Total Protein 7.4 g/dL (6.4-8.2)
--- NOTE | 2023-01-20 13:57 | ED.GENADULT ---
HPI - General Adult General Chief complaint: Skin/Abscess/Foreign Body Stated complaint: wound to lower abdomen Time Seen by Provider: 01/20/23 12:49 History of Present Illness HPI narrative: 62yo woman with type 2 diabetes mellitus presents with a painful rash to the left low abdominal wall that she only just first noticed 24 hours ago and is now producing a blood blister. +chills and sweats last night. No fever. No history of trauma. Related Data Allergies Allergy/AdvReac Type Severity Reaction Status Date / Time hydrocodone [Vicodin] Allergy Intermediate Hypotension Verified 01/20/23 13:33 Review of Systems Review of Systems: All systems reviewed & are unremarkable except as noted in HPI and below Constitutional: Constitutional: Reports chills and Denies fever(s) ENT: Denies dysphagia Cardiovascular: Cardiovascular: Denies chest pain Respiratory: Respiratory: Denies dyspnea PMFSH Past Medical History Medical History Asthma History of DVT (deep vein thrombosis) Hyperlipidemia Insect bite Obesity, morbid, BMI 40.0-49.9 Surgical History Surgical History H/O section History of cholecystectomy 2004 History of hysterectomy Family History Family History Other Family history of type 2 diabetes mellitus Hypertension Social History Social History Smoking packs per day: 1.5 Smoking cigarettes per day: 30.0 Years smoked: 35 Smoking pack-years: 52.50 Smoking status: Former smoker Tobacco type: cigarettes Additional smoking assessment comments: Quit 2009. Over 30 pack-year history Alcohol intake: never Substance use type: does not use Lack of Transportation: No Lack of Food: Never True Current Housing: I Have Housing Concerned About Future Housing: No Difficulty Paying Gas/Electric Bills: No Difficulty Paying for Meds: No Currently Unemployed: No Education: Trade/Vocational Certificate Difficulty w/ Childcare or Family Care: No Living arrangements: with family Occupation/Education: occupation Additional occupation/education comments: [employer]. Spiritual care concerns: No Exam Const: General: no acute distress and alert; No confusion Nutritional Appearance: well nourished and obese Eyes: Conjunctivae: conjunctivae normal Resp: Effort & Inspection: normal respiratory effort and not labored Cardio: Rate: regular rate Rhythm: regular rhythm Heart sounds: no murmurs GI: Inspection: non-distended GI Palp: Yes Soft to palpation and Yes Tenderness to palpation present (GI) Other: there is a large erythematous cellulitis patch with acute on chronically indurated skin of the left lower quadrant abdominal wall. No tenderness to deep palpation. There is a central hemorrhagic blister to the cellulitis. Skin: General skin exam: normal color, no jaundice and no pallor Other: see abdominal exam for cellulitis with probably hemolytic organism Extrem: General: no clubbing, cyanosis or edema Course Vital Signs Vital signs: Vital Signs Temperature 37.3 C 01/20/23 12:36 Pulse Rate 105 H 01/20/23 12:36 Respiratory Rate 16 01/20/23 12:36 Blood Pressure 133/81 01/20/23 12:36 Pulse Oximetry 94 01/20/23 12:36 Oxygen Delivery Room Air 01/20/23 12:36 Temperature 37.3 C 01/20/23 12:36 Pulse Rate 105 H 01/20/23 12:36 Respiratory Rate 16 01/20/23 12:36 Blood Pressure 133/81 01/20/23 12:36 Pulse Oximetry 94 01/20/23 12:36 Oxygen Delivery Room Air 01/20/23 12:36 Medical Decision Making MDM Narrative Medical decision making narrative: painful skin rash and blister DDx likely cellulitis, likely Staph or Strep. Needs MRSA coverage and prolonged course of antibiotics given
[2023-01-20 13:59] LABS: Lactic Acid Reflex 1.3 mmol/L (0.4-2.0)
[2023-01-20 14:00] VITALS: BP 128/89; PULSE 102; RESP 18; O2SAT 95
[2023-01-20] MEDS: SODIUM CHLORIDE 0.9% IV 1,000 ML 999 ML IV CONT (14:24)
[2023-01-20] MEDS: CLINDAMYCIN 600 MG/D5W 50 ML 600 MG/50 ML PIGGYBACK 100 MG IVPB (14:24)
--- NOTE | 2023-01-20 14:33 | PC.NURSE ---
PT IS SITTING UP ON STRETCHER IN EXAM ROOM WITH IVF AND IV MEDICATIONS INFUSING WITHOUT DIFFICULTY. NAD NOTED. PT DENIES ANY NEEDS OR COMPLAINTS. WILL CONTINUE TO MONITOR.
[2023-01-20] MEDS: cefTRIAXone 2 GM/NS 100 ML 2 GM/100 ML BAG IVPB (14:59)
--- NOTE | 2023-01-20 15:04 | PC.NURSE ---
PT IS SITTING UP EATING AT THIS TIME. IVF AND IV MEDICATIONS ARE INFUSING WITHOUT DIFFICULTY. NAD NOTED. WILL CONTINUE TO MONITOR.
[2023-01-20 15:05] VITALS: BP 128/78; PULSE 98; RESP 18; TEMP 37.2; O2SAT 99
[2023-01-20 15:34] VITALS: BP 131/82; PULSE 101; RESP 18; TEMP 36.6; O2SAT 100
--- NOTE | 2023-01-20 15:34 | ED.GENADULT ---
HPI - General Adult General Chief complaint: Skin/Abscess/Foreign Body Stated complaint: wound to lower abdomen Time Seen by Provider: 01/20/23 12:49 Related Data Allergies Allergy/AdvReac Type Severity Reaction Status Date / Time hydrocodone [Vicodin] Allergy Intermediate Hypotension Verified 01/20/23 13:33 PMF Past Medical History Medical History Asthma History of DVT (deep vein thrombosis) Hyperlipidemia Insect bite Obesity, morbid, BMI 40.0-49.9 Surgical History Surgical History H/O section History of cholecystectomy 2004 History of hysterectomy Family History Family History Other Family history of type 2 diabetes mellitus Hypertension Social History Social History Smoking packs per day: 1.5 Smoking cigarettes per day: 30.0 Years smoked: 35 Smoking pack-years: 52.50 Smoking status: Former smoker Tobacco type: cigarettes Additional smoking assessment comments: Quit 2009. Over 30 pack-year history Alcohol intake: never Substance use type: does not use Lack of Transportation: No Lack of Food: Never True Current Housing: I Have Housing Concerned About Future Housing: No Difficulty Paying Gas/Electric Bills: No Difficulty Paying for Meds: No Currently Unemployed: No Education: Trade/Vocational Certificate Difficulty w/ Childcare or Family Care: No Living arrangements: with family Occupation/Education: occupation Additional occupation/education comments: [employer]. Spiritual care concerns: No Course Vital Signs Vital signs: Vital Signs Temperature 37.3 C 01/20/23 12:36 Pulse Rate 105 H 01/20/23 12:36 Respiratory Rate 16 01/20/23 12:36 Blood Pressure 133/81 01/20/23 12:36 Pulse Oximetry 94 01/20/23 12:36 Oxygen Delivery Room Air 01/20/23 12:36 Temperature 37.2 C 01/20/23 15:05 Pulse Rate 98 01/20/23 15:05 Respiratory Rate 18 01/20/23 15:05 Blood Pressure 128/78 01/20/23 15:05 Pulse Oximetry 99 01/20/23 15:05 Oxygen Delivery Room Air 01/20/23 15:05 Medical Decision Making Vital Signs Vital Signs: Vital Signs Temperature 37.3 C 01/20/23 12:36 Pulse Rate 105 H 01/20/23 12:36 Respiratory Rate 16 01/20/23 12:36 Blood Pressure 133/81 01/20/23 12:36 Pulse Oximetry 94 01/20/23 12:36 Oxygen Delivery Room Air 01/20/23 12:36 Temperature 37.2 C 01/20/23 15:05 Pulse Rate 98 01/20/23 15:05 Respiratory Rate 18 01/20/23 15:05 Blood Pressure 128/78 01/20/23 15:05 Pulse Oximetry 99 01/20/23 15:05 Oxygen Delivery Room Air 01/20/23 15:05 Lab Data 01/20/23 13:36 01/20/23 13:36 Labs: Lab Results 01/20/23 Range/Units 13:36 WBC 15.6 H (4.8-10.8) K/mm3 RBC 4.85 (4.20-5.40) M/mm3 Hgb 13.8 (12.0-15.0) g/dL Hct 41.6 (35.0-49.0) % MCV 85.8 (78.0-102.0) fL MCH 28.5 (27.0-31.0) pg MCHC 33.2 (32.0-36.0) g/dL RDW 13.2 (11.6-14.4) % Plt Count 264 (150-420) K/mm3 MPV 9.9 (9.2-11.8) fl Immature Gran % (Auto) 0.3 H (0.0-0.0) % Neut % (Auto) 74.0 H (50.0-70.0) % Lymph % (Auto) 16.8 L (18.0-42.0) % Caswell % (Auto) 7.7 (2.0-11.0) % Eos % (Auto) 0.8 L (1.0-6.0) % Baso % (Auto) 0.4 (0.0-1.0) % Lymph # (Auto) 2.62 (1.10-4.50) K/mm3 Caswell # (Auto) 1.20 H (0.10-0.90) K/mm3 Eos # (Auto) 0.12 (0.02-0.50) K/mm3 Baso # (Auto) 0.06 (0.00-0.10) K/mm3 Abs Immat Gran (auto) 0.05 H (0.00-0.00) K/mm3 Absolute Neuts (auto) 11.6 H (1.7-7.2) K/mm3 Absolute Nucleated RBC 0.00 (0.00-0.00) K/mm3 Nucleated RBC % 0.0 (0-0.0) % Sodium 137 (136-145) mmol/L Potassium 3.7 (3.5-5.1) mmol/L Chloride 100 (98-108) mmol/L Carbon Dioxide 30 (21-32) mmol/L Anion Gap
--- NOTE | 2023-01-26 15:58 | PC.NURSE ---
final blood cultures x2 reviewed, no growth, no change in pt plan of care
== END 2023-01-20 15:42 | disposition home or self-care (01) ==
PROVIDERS: Emergency Provider Emergency Medicine; PCP Family Medicine
DX: L03.311 Cellulitis of abdominal wall (principal); M79.3 Panniculitis, unspecified; J45.909 Unspecified asthma, uncomplicated; E78.5 Hyperlipidemia, unspecified; Z86.718 Personal history of other venous thrombosis and embolism; E66.9 Obesity, unspecified; Z68.39 Body mass index [BMI] 39.0-39.9, adult; Z87.891 Personal history of nicotine dependence; Z79.899 Other long term (current) drug therapy; Z79.01 Long term (current) use of anticoagulants; Z79.51 Long term (current) use of inhaled steroids
CPT/HCPCS: 36415; 80053; 83605; 83735; 85025; 87040; 96365; 96367; 99284; J0696; J7030

== ENCOUNTER 2023-02-04 12:19 | Outpatient (RCR) | payer OTHER, SELFPAY ==
[2022-12-19 14:22] LABS: INR 2.1; Prothrombin Time 21.8 Seconds (9.50-12.10)
[2023-02-04 12:52] LABS: INR 2.4; Prothrombin Time 24.5 Seconds (9.50-12.10)
== END 2023-03-19 23:59 | disposition home or self-care (01) ==
LOC: CHSLAB 12:19
PROVIDERS: PCP Family Medicine; Visit Provider Family Medicine
DX: Z86.718 Personal history of other venous thrombosis and embolism (principal)
CPT/HCPCS: 36415; 85610

== ENCOUNTER 2023-06-18 12:31 | Outpatient (CLI) | payer OTHER, SELFPAY ==
[2023-06-18 12:57] LABS: INR 1.6; Prothrombin Time 16.5 Seconds (9.50-12.10)
== END 2023-06-18 12:32 | disposition home or self-care (01) ==
LOC: CHSLAB 12:33
PROVIDERS: PCP Family Medicine; Visit Provider Family Medicine
DX: Z51.81 Encounter for therapeutic drug level monitoring (principal); Z79.01 Long term (current) use of anticoagulants; Z86.718 Personal history of other venous thrombosis and embolism
CPT/HCPCS: 36415; 85610

== ENCOUNTER 2023-08-18 10:01 | Outpatient (RCR) | payer OTHER, SELFPAY ==
[2023-06-26 12:38] LABS: INR 1.8; Prothrombin Time 19.3 Seconds (9.50-12.10)
[2023-08-18 10:26] LABS: INR 2.4; Prothrombin Time 24.6 Seconds (9.50-12.1)
== END 2023-09-24 23:59 | disposition home or self-care (01) ==
LOC: CHSLAB 10:01
PROVIDERS: PCP Family Medicine; Visit Provider Family Medicine
DX: Z86.718 Personal history of other venous thrombosis and embolism (principal)
CPT/HCPCS: 36415; 85610

== ENCOUNTER 2023-10-20 10:29 | Outpatient (RCR) | payer OTHER, SELFPAY ==
[2023-10-13 09:26] LABS: INR 1.7; Prothrombin Time 18.2 Seconds (9.50-12.1)
[2023-10-20 11:34] LABS: INR 2.8; Prothrombin Time 28.1 Seconds (9.50-12.1)
== END 2024-01-11 23:59 | disposition home or self-care (01) ==
LOC: CHSLAB 10:29
PROVIDERS: PCP Family Medicine; Visit Provider Family Medicine
DX: Z86.718 Personal history of other venous thrombosis and embolism (principal); Z79.01 Long term (current) use of anticoagulants
CPT/HCPCS: 36415; 85610

== ENCOUNTER 2024-08-18 12:20 | Outpatient (CLI) | payer MEDICARE, MEDICAID, SELFPAY ==
--- NOTE | ~2024-08-18 | MM_ITS ---
EXAMINATION: MM screening sofia BI w dave HISTORY: Screening TECHNIQUE: Craniocaudal and mediolateral oblique 3-D tomosynthesis images were obtained and synthetic 2-D images were generated. CAD analysis was submitted and interpreted. COMPARISON: 09/23/2016 BREAST PARENCHYMAL COMPOSITION: Not dense: There are scattered areas of fibroglandular density. FINDINGS: There is no evidence of suspicious mass, calcification, or architectural distortion to sugg est malignancy in either breast. There has been no suspicious interval change. IMPRESSION: 1. No mammographic evidence of malignancy. 2. Recommend routine screening mammography in one year. BI-RADS Category 1: Negative Reviewed, dictated and finalized at location B.
--- OUTSIDE RECORDS SUMMARY | 2024-08-18 13:49 | XMS_ITS | Clinical Summary ---
Author Organization [facility] Address Formerly [facility] [place] [address] Care Team Providers Care Egyptologist Name Role Phone Jose Montilla DO Primary Care Provider [phone] Social History Tobacco Use Types Packs/Day Years Used Date Smoking Tobacco: Never Assessed Comments Unknown Sex and Gender Information Value Date Recorded Sex Assigned at Not on file Legal Sex Female 10:10 PM CDT Gender Identity Not on file Sexual Orientation Not on file Plan of Treatment Health Maintenance Due Date Last Done Comments Colorectal Cancer Screening Colonoscopy (10 Years) 1958 Hepatitis C 1976 DTaP, Tdap and Td Vaccines ( 1 - Tdap) 1977 Mammogram Screening 1998 Zoster Vaccines (1 of 2) 2008 Dexa Scan (General) 12/12/2023 Pneumococcal Vaccine: 65+ Ye ars (1 of 1 - PCV) 12/12/2023 COVID-19 Vaccine (2 - 2023-2 5 season) 2024 10/17/2020 Influenza Adult (#1) 2024 RSV Immunization or 60+ Years (1 - 1-dose 75+ series) 2033 Meningococcal B Vaccine Aged Out No l onger eligible based on patient's age to complete this topic Meningococcal Vaccine Aged Out No aline keny eligible based on patient's age to complete this topic Pneumococcal Vaccine: Pediat rics (0 to 5 Years) and At-Risk Patients (6 to 64 Years) Aged Out No longer eligi ble based on patient's age to complete this topic RSV Immunizations Under 20 Months Aged Out No longer eligible based on patient's age to complete this topic Insurance [facility] [place] [id number] Care Teams Egyptologist Relationship Specialty Start Date End Date Jose Montilla DO [address] [place] [address] PCP - General FAMILY PRACTICE 06/08/21
--- OUTSIDE RECORDS SUMMARY | 2024-08-18 13:49 | XMS_ITS | Referral Summary ---
Author Organization [facility] Address [address] [place] [address] Care Team Providers Care Rn Homecare Name Role Phone Jose Montillarish Primary Care Provider Allergies Active Allergy Reactions Criticality Noted Date Comments Hydrocodone-Acetamin ophen Other (See comments) Low 10/05/2021 Lowers heart rate and BP Medications metFORMIN (GLUCOPHAGE) 500 mg tablet Take 500 mg by mouth daily 09/05/2021 Active warfarin (COUMADIN) 4 mg tablet Take 4 mg by mouth daily 09/13/2021 Active methylPREDNISol one (Medrol, [place],) 4 mg Dosepack Take as directed on package 1 packet 02/06/2022 Active cephalexin (KEFLEX) 500 mg capsule Take 500 mg by mouth every 6 (six) hours 02/22/2022 Active Active Problems No known active problems Social History Tobacco Use Types Packs/Day Years Used Date Smoking Tobacco: Former Cigarettes 1 9 2008 Smokeless Tobacco: Never Personal Safety Answer Date Recorded Getting School Help Needed Not on file 08/15 Comments Unknown Sex and Gender Information Value Date Recorded Sex Assigned at Not on file 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 Gender Identity Not on file Sexual Orientation Not on file Last Filed Vital Signs Vital Sign Reading Time Taken Comments Blood Pressure 137/74 03/27/2022 8:09 AM CDT Pulse 44 03/27/2022 8:09 AM CDT Temperature - - Respiratory Rate - - Oxygen Saturation - - Inhaled Oxygen Concentration - - Weight 108.9 kg (240 lb) 03/27/2022 8:09 AM CDT Height 167.6 cm (5' 6 ) 03/27/2022 8:09 AM CDT Body Mass Index 38.74 03/27/2022 8:09 AM CDT Plan of Treatment Not on file Insurance [employer] GENERIC Member Subscriber Plan / Payer (Ef fective 2021-Present) Name:CkBrianna Relation to Subscriber:Self Name:Keo Stovermiguel angel Blair Payer ID:[id number] Group ID:Not on file Type:WORKERS COMPENSATION Address: [address] [address] Care Teams Rn Homecare Relationship Specialty Start Date End Date Jose Montilla DO [address] [place] [address] PCP - General Family Medicine 10/05/21
--- OUTSIDE RECORDS SUMMARY | 2024-08-18 13:49 | XMS_ITS | Clinical Summary ---
Author Organization [facility] Address [address] [place] [address] Care Team Providers Care Chief Concierge Name Role Phone ElifchristianoJoserish Primary Care Provider Allergies Active Allergy Reactions [...] Active Active Problems No known active problems Surgical History Surgery Date Site/Laterality Comments HYSTERECTOMY CHOLECYSTECTOMY SPINAL FUSION Family History Medical History Relation Name Comments Arthritis Other Asthma Other Diabetes Other Gout Other Hypertension Other Relation Name Status Comments Other Social History Tobacco Use Types Packs/Day Years Used Date Smoking Tobacco: Former Cigarettes 1 979 - 2008 Smokeless Tobacco: Never Personal Safety Answer Date Recorded Getting School Help Needed Not on file 08/15 Comments Unknown Sex and Gender Information Value Date Recorded Sex Assigned at Not on file 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 Gender Identity Not on file Sexual Orientation Not on file Obstetrics History Last Filed Vital Signs Vital Sign Reading [...] 03/27/2022 8:09 AM CDT Plan of Treatment Health Maintenance Due Date Last Done Comments Breast Cancer Screening-Mammogram 1958 Colon Cancer Screening-Colonoscopy 1958 Depression Screening 1958 Fall Risk Assessment 1958 Hepatitis C Screening 1958 Osteoporosis Screening-Bone Density Scan 1958 DTaP/Tdap/Td Vaccine (1 - Tdap) 1969 Hepatitis B Screening 1976 Pneumococcal vaccine 65+ (1 of 1 - PCV) 2008 Zoster Vaccine (1 of 2) 2008 Well Visit 65+ 12/12/2023 Covid-19 Vaccine (2 - 2023- season) 2024 Influenza Vaccine (#1) 2024 Insurance [employer] Care Teams Chief Concierge Relationship Specialty Start Date End Date Jose Montilla DO [address] [place] [address] PCP - General Family Medicine 10/05/21
== END 2024-08-18 12:21 | disposition home or self-care (01) ==
LOC: CHSIMG 12:22
PROVIDERS: PCP Family Medicine; Visit Provider Family Medicine
DX: Z12.31 Encounter for screening mammogram for malignant neoplasm of breast (principal)
CPT/HCPCS: 77063; 77067

== ENCOUNTER 2024-09-02 01:57 | Day surgery (SDC) | payer MEDICARE, MEDICAID, SELFPAY ==
[2024-08-26 10:14] VITALS: BMI 36.8
--- NOTE | 2024-08-26 10:26 | SUR.PREOP ---
Spoke with patient regarding medication Eliquis. Patient verbalizes understanding that the last dose is to be taken on 08/30/2024 and the Endoscopist will instruct them when to restart after the procedure.
--- OUTSIDE RECORDS SUMMARY | 2024-09-02 02:00 | XMS_ITS | Clinical Summary ---
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
--- OUTSIDE RECORDS SUMMARY | 2024-09-02 02:00 | XMS_ITS | Clinical Summary ---
Author Organization [facility] Address [facility] [place] [address] Care Team Providers Care Speech Instructor Name Role Phone Jose Montilla DO Primary Care Provider Social History Tobacco Use Types Packs/Day Years [...] patient's age to complete this topic Insurance [facility] [place] [id number] Care Teams Speech Instructor Relationship Specialty Start Date End Date Jose Montilla DO [address] [place] [address] PCP - General FAMILY PRACTICE 06/08/21
--- OUTSIDE RECORDS SUMMARY | 2024-09-02 02:00 | XMS_ITS | Referral Summary ---
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
[2024-09-02 13:37] VITALS: BP 159/104; PULSE 98; RESP 16; TEMP 36.6; O2SAT 100; BMI 37.3
[2024-09-02] MEDS: LACTATED RINGERS 1,000 ML 150 ML IV CONT (13:48)
[2024-09-02 14:01] LABS: Glucose Point of Care 101 mg/dl (65-105)
--- NOTE | 2024-09-02 14:17 | WPDANESEPPF ---
Anes - Initial Pre Proc Eval Procedure: Operation Date: 09/02/24 14:30 Proposed Procedures p Screening Colonoscopy - Mauro Paez MD Date/Time: 09/02/24 14:17 Surgeon: Mauro Paez MD Pre Op Diagnosis: Hx of colon polyps Patient Data Age: 63 Gender: F Height: 1.68 m Weight: 105 kg Last Vital Signs Temp 97.9 F 09/02/24 13:37 Pulse 98 09/02/24 13:37 Resp 16 09/02/24 13:37 BP 159/104 H 09/02/24 13:37 Pulse Ox 100 09/02/24 13:37 O2 Del Method Room Air 09/02/24 13:37 Allergies Allergy/AdvReac Type Severity Reaction Status Date / Time hydrocodone (Vicodin) Allergy Intermediate Hypotension Verified 09/02/24 13:35 Home Medications ?Medication ?Instructions ?Recorded ?Confirmed ?Type apixaban 5 mg tablet (Eliquis) See Rx Instructions .Route 08/02/24 09/02/24 Rx .COMPLEX #60 tabs fluticasone furoate 50 2 inh inhalation DAILY PRN Asthma 08/19/24 09/02/24 Rx mcg-vilanterol 25 mcg/dose 30 days #60 ea inhalation powder (Breo Ellipta) dulaglutide 1.5 mg/0.5 mL See Rx Instructions .Route 08/31/24 09/02/24 Rx subcutaneous pen injector .COMPLEX #2 mL (Trulicity) Laboratory Tests 09/02/24 13:47 POC Capillary Glucose 101 mg/dl (65-105) Patient hx anesthesia problems: none Family hx anesthesia problems: none Results Review: All pre-operative results and documents have been reviewed as part of the pre-operative evaluation. 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 Over 30 pack-year history Alcohol intake: never Substance use type: does not use Lack of Transportation: No Lack of Food: Never True Current Housing: I Have Housing Concerned About Future Housing: No Difficulty Paying Gas/Electric Bills: No Difficulty Paying for Meds: No Currently Unemployed: No Education: Trade/Vocational Certificate Difficulty w/ Childcare or Family Care: No Living arrangements: with family Occupation/Education: occupation Additional occupation/education comments: [employer]. Spiritual care concerns: No Anes - Eval Final PreProcedure Day of Procedure 09/02/24 14:17 Patient weight: obese Heart: regular rate and rhythm Lungs: clear to auscultation Airway: Mallampati scale class II Neurological: alert and oriented Last oral intake: >/= 8 hours ASA classification: III Emergent: no Anesthetic plan: proceed Anesthesia type and monitoring: general GIVS and standard monitoring Results Review: All pre-operative results and documents have been reviewed as part of the pre-operative evaluation. Informed Consent: The patient's anesthetic plan and its attendant risks and benefits were discussed with the patient/family/POA. Questions were solicited and answers provided to the satisfaction of the patient/family/POA.
--- NOTE | 2024-09-02 14:36 | P.HP_ITS ---
History of Present Illness History of Present Illness Consent: Risks, benefits, and alternatives have been discussed and questions answered. Patient agrees to proceed with procedure. Chief complaint: Hx of colon polyps Narrative: Brianna Stover is a 63 year old female with colon polyp 5 years ago Review of Systems Review of Systems: All systems reviewed & are unremarkable except as noted in HPI and below PMFSH Past Medical History Medical History halfway current use of anticoagulant Insect bite Obesity, morbid, BMI 40.0-49.9 History of DVT (deep vein thrombosis) Asthma Hyperlipidemia Surgical History Surgical History History of hysterectomy H/O section History of cholecystectomy 2003 Family History Family History Other Family history of type 2 diabetes mellitus Hypertension Social History Social History Smoking packs per day: 1.5 Smoking cigarettes per day: 30.0 Years smoked: 35 Smoking pack-years: 52.50 Smoking status: Former smoker Tobacco type: cigarettes Additional smoking assessment comments: Quit 2009. Over 30 pack-year history Alcohol intake: never Substance use type: does not use Lack of Transportation: No Lack of Food: Never True Current Housing: I Have Housing Concerned About Future Housing: No Difficulty Paying Gas/Electric Bills: No Difficulty Paying for Meds: No Currently Unemployed: No Education: Trade/Vocational Certificate Difficulty w/ Childcare or Family Care: No Living arrangements: with family Occupation/Education: occupation Additional occupation/education comments: [employer]. Spiritual care concerns: No Meds Home Medications and Allergies Home Medications ?Medication ?Instructions ?Recorded ?Confirmed ?Type apixaban 5 mg tablet (Eliquis) See Rx Instructions .Route 08/02/24 09/02/24 Rx .COMPLEX #60 tabs fluticasone furoate 50 2 inh inhalation DAILY PRN Asthma 08/19/24 09/02/24 Rx mcg-vilanterol 25 mcg/dose 30 days #60 ea inhalation powder (Breo Ellipta) dulaglutide 1.5 mg/0.5 mL See Rx Instructions .Route 04/01/25 04/03/25 Rx subcutaneous pen injector .COMPLEX #2 mL (Trulicity) Allergies Allergy/AdvReac Type Severity Reaction Status Date / Time hydrocodone (Vicodin) Allergy Intermediate Hypotension Verified 09/02/24 13:35 Vital Signs Vital Signs - 24 hr 09/02/24 13:37 Temperature 97.9 F Pulse Rate 98 Respiratory Rate 16 Blood Pressure 159/104 H Pulse Oximetry 100 Oxygen Delivery Room Air Exam Const: General: comfortable and no acute distress HENMT: Face/Nose/Sinus: Normal nares present Eyes: General: appearance normal, both eyes and all related structures Neck: Neck: no JVD Resp: Auscultation: clear to auscultation bilaterally Cardio: Rate: regular rate Rhythm: regular rhythm GI: Inspection: non-distended GI Palp: Yes Soft to palpation Skin: General skin exam: normal color Neuro: General: gait normal Speech: normal speech Extrem: General: normal to inspection Psych: Mental Status: mental status grossly normal Assessment and Plan Assessment and plan (1) Colon polyps: Code(s): K63.5 - Polyp of colon Status: Acute Assessment and Plan: colonoscopy
[2024-09-02 14:55] VITALS: BP 97/54; PULSE 77; RESP 15; O2SAT 100
[2024-09-02 15:05] VITALS: BP 122/77; PULSE 85; RESP 20; O2SAT 98
[2024-09-02 15:15] VITALS: BP 124/80; PULSE 81; RESP 22; O2SAT 100
== END 2024-09-02 15:30 | disposition home or self-care (01) ==
PROVIDERS: PCP Family Medicine; Referring Provider Internal Medicine Gastroenterology; Visit Provider Internal Medicine Gastroenterology
PROC: 0DJD8ZZ Inspection of Lower Intestinal Tract, Via Natural or Artificial Opening Endoscopic (ICD-10-PCS; CPT 45378; principal; 2024-09-02 14:30)
DX: Z12.11 Encounter for screening for malignant neoplasm of colon (principal); D12.4 Benign neoplasm of descending colon; K57.30 Diverticulosis of large intestine without perforation or abscess without bleeding; K64.8 Other hemorrhoids; Z86.718 Personal history of other venous thrombosis and embolism; E78.5 Hyperlipidemia, unspecified; Z79.01 Long term (current) use of anticoagulants; J45.909 Unspecified asthma, uncomplicated; E66.01 Morbid (severe) obesity due to excess calories; Z68.37 Body mass index [BMI] 37.0-37.9, adult; Z87.891 Personal history of nicotine dependence
CPT/HCPCS: 45385; 82948; 88305; J2003; J2704; J7120

== ENCOUNTER 2024-10-09 13:52 | Emergency (ER) | payer MEDICARE, MEDICAID, SELFPAY ==
[2024-10-09 13:53] VITALS: BP 136/84; PULSE 88; RESP 16; TEMP 36.6; O2SAT 96
--- OUTSIDE RECORDS SUMMARY | 2024-10-09 13:53 | XMS_ITS | Clinical Summary ---
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
--- OUTSIDE RECORDS SUMMARY | 2024-10-09 13:53 | XMS_ITS | Clinical Summary ---
Author Organization [facility] Address Counts include [facility] beds at the [facility] [place] [address] Care Team Providers Care Supervisor Boiler Repair Name Role Phone Jose Montilla DO Primary Care Provider [phone] Social History Tobacco Use Types Packs/Day Years [...] 1 - Tdap) 1977 Mammogram Screening 1998 Pneumococcal Vaccine: 50+ Ye ars (1 of 1 - PCV) 2008 Zoster Vaccines (1 of 2) 2008 Dexa Scan (General) 12/12/2023 COVID-19 Vaccine (2 - 2023-2 5 season) 2024 10/17/2020 RSV Immunization or 60+ Years (1 - 1-dose 75+ series) 2033 Meningococcal B Vaccine Aged Out No l onger eligible based on patient's age to complete this topic Meningococcal Vaccine Aged Out No aline keny eligible based on patient's age to complete this topic RSV Immunizations Under 20 Months Aged Out No longer eligible based on patient's age to complete this topic Insurance [facility] Care Teams Supervisor Boiler Repair Relationship Specialty Start Date End Date Jose Montilla DO [address] [place] [address] PCP - General FAMILY PRACTICE 06/08/21
--- OUTSIDE RECORDS SUMMARY | 2024-10-09 13:53 | XMS_ITS | Referral Summary ---
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
--- OUTSIDE RECORDS SUMMARY | 2024-10-09 14:17 | XMS_ITS | Clinical Summary ---
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
--- OUTSIDE RECORDS SUMMARY | 2024-10-09 14:17 | XMS_ITS | Clinical Summary ---
Author Organization [facility] Address [facility] [place] [address] Care Team Providers Care Occupational Health Physician Name Role Phone Jose Montilla DO Primary Care Provider [phone] Social History Tobacco Use Types Packs/Day Years [...] patient's age to complete this topic Insurance [facility] Care Teams Occupational Health Physician Relationship Specialty Start Date End Date Jose Montilla DO [address] [place] [address] PCP - General FAMILY PRACTICE 06/08/21
--- OUTSIDE RECORDS SUMMARY | 2024-10-09 14:17 | XMS_ITS | Referral Summary ---
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
--- NOTE | 2024-10-09 14:30 | ED_ITS ---
HPI - Skin/Abscess/Foreign Bdy General Chief complaint: Skin/Abscess/Foreign Body Stated complaint: left finger swollen Time Seen by Provider: 10/09/24 13:56 Source: patient Mode of arrival: ambulatory History of Present Illness HPI narrative: this is a 63-year-old female with a red swollen distal left index finger with surrounding inflammation around the nail bed with no known injury no fever chills no shortness of breath. Severity: mild Related Data Home Medications ?Medication ?Instructions ?Recorded ?Confirmed ?Last Taken ?Type albuterol 90 mcg-budesonide 80 2 inh inhalation ONCE 10/05/24 10/05/24 Unknown History mcg/actuation HFA aerosol inhaler (Airsupra) Allergies Allergy/AdvReac Type Severity Reaction Status Date / Time hydrocodone (Vicodin) Allergy Intermediate Hypotension Verified 10/09/24 14:10 Review of Systems Review of Systems: All systems reviewed & are unremarkable except as noted in HPI and below PMFSH Past Medical History Medical History assisted current use of anticoagulant Insect bite Obesity, morbid, BMI 40.0-49.9 History of DVT (deep vein thrombosis) Asthma Hyperlipidemia Surgical History Surgical History History of hysterectomy H/O section History of cholecystectomy 2004 Family History Family History Other Family history of type 2 diabetes mellitus Hypertension Social History Social History Smoking packs per day: 1.5 Smoking cigarettes per day: 30.0 Years smoked: 35 Smoking pack-years: 52.50 Smoking status: Former smoker Tobacco type: cigarettes Additional smoking assessment comments: Quit 2009. Over 30 pack-year history Alcohol intake: never Substance use type: does not use Lack of Transportation: No Lack of Food: Never True Current Housing: I Have Housing Concerned About Future Housing: No Difficulty Paying Gas/Electric Bills: No Difficulty Paying for Meds: No Currently Unemployed: No Education: Trade/Vocational Certificate Difficulty w/ Childcare or Family Care: No Living arrangements: with family Occupation/Education: occupation Additional occupation/education comments: [employer]. Spiritual care concerns: No Exam Const: General: healthy appearing, no acute distress and alert Nutritional Appearance: well nourished and obese Orientation/consciousness: patient oriented x3 Limitations: no limitations Resp: Effort & Inspection: normal respiratory effort Auscultation: clear to auscultation bilaterally Cardio: Rate: regular rate Rhythm: regular rhythm GI: GI Palp: Yes Soft to palpation and Yes Tenderness to palpation present (GI) Urinary Catheter: Urinary Catheter: patent and draining Back/Spine/Pelvis: Back: no CVA tenderness Skin: General skin exam: normal color Wounds: wounds noted Extrem: General: normal to inspection Course Course Emergency Course: Left index finger with paronychia and will prescribe antibiotics will send to his local pharmacy is Vital Signs Vital signs: Vital Signs Temperature 36.6 C 10/09/24 13:53 Pulse Rate 88 10/09/24 13:53 Respiratory Rate 16 10/09/24 13:53 Blood Pressure 136/84 10/09/24 13:53 Pulse Oximetry 96 10/09/24 13:53 Oxygen Delivery Room Air 10/09/24 13:53 Temperature 36.6 C 10/09/24 13:53 Pulse Rate 88 10/09/24 13:53 Respiratory Rate 16 10/09/24 13:53 Blood Pressure 136/84 10/09/24 13:53 Pulse Oximetry 96 10/09/24 13:53 Oxygen Delivery Room Air 10/09/24 13:53 Critical Care Time Critical Care Time Critical Care Time: No Discharge Plan Discharge Clinical Impression: Paronychia Patient Disposition: Home Condition: Stable Instructions: Antibiotic Form, Paronychia (ED) Additional Instructions: send antibiotics to her local pharmacy. And follow-up with primary care physician within 1 week further evaluation treatment. Patient Language: Faroese Prescriptions: New amoxicillin-pot clavulanate [Augmentin] 500-125 mg tablet 1 tablet PO TID Qty: 30 0RF No Action Eliquis 5 mg tablet See Rx Instructions .ROUTE .COMPLEX Qty: 180 3RF Dose Instruction: TAKE 1 TABLET BY MOUTH TWICE A DAY Rx Instructions: TAKE 1 TABLET BY MOUTH TWICE A DAY Breo Ellipta 50-25 mcg/dose blister with device 2 inh inhalation DAILY PRN (Reason: Asthma ) 30 Days Qty: 180 3RF montelukast 10 mg tablet 10 mg PO DAILY Qty: 90 0RF Airsupra 90-80 mcg/actuation HFA aerosol inhaler 2 inh inhalation ONCE Rx Instructions: as a single dose; may repeat up to 6 doses per day (12 inhalations) SAMPLES GIVEN TO PATIENT IN OFFICE TODAY [facility]- [id number] LOT- [id number] 2024-12 SUSHIL/AW Trulicity 1.5 mg/0.5 mL pen injector See Rx Instructions .ROUTE .COMPLEX Qty: 2 2RF Dose Instruction: INJECT 1.5 MG (0.5 ML) SUBCUTANEOUSLY WEEKLY Rx Instructions: INJECT 1.5 MG (0.5 ML) SUBCUTANEOUSLY WEEKLY Follow-up/Referrals: Jose Montilla DO [Primary Care Provider] - Time of Disposition: 14:34
[2024-10-09 15:09] VITALS: BP 136/84; PULSE 88; RESP 16; TEMP 36.6; O2SAT 96
== END 2024-10-09 15:09 | disposition home or self-care (01) ==
PROVIDERS: Emergency Provider Emergency Medicine; PCP Family Medicine
DX: L03.012 Cellulitis of left finger (principal); E78.5 Hyperlipidemia, unspecified; J45.909 Unspecified asthma, uncomplicated; Z87.891 Personal history of nicotine dependence
CPT/HCPCS: 99283

== ENCOUNTER 2025-01-12 06:57 | Outpatient (CLI) | payer OTHER, SELFPAY ==
--- OUTSIDE RECORDS SUMMARY | 2025-01-12 07:00 | XMS_ITS | Clinical Summary ---
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
--- OUTSIDE RECORDS SUMMARY | 2025-01-12 07:00 | XMS_ITS | Clinical Summary ---
Author Organization [facility] Address [facility] [place] [address] Care Team Providers Care Handkerchief Presser Name Role Phone Jose Montilla DO Primary Care Provider [phone] Social History Tobacco Use Types Packs/Day Years [...] patient's age to complete this topic Insurance [facility] Care Teams Handkerchief Presser Relationship Specialty Start Date End Date Jose Montilla DO [address] [place] [address] PCP - General FAMILY PRACTICE 06/08/21
[2025-01-12 07:55] LABS: Cholesterol 210 mg/dL (0-200); HDL Direct 53 mg/dL; Triglycerides 111 mg/dL (<150)
== END 2025-01-12 06:58 | disposition home or self-care (01) ==
LOC: CHSLAB 06:58
PROVIDERS: PCP Family Medicine; Visit Provider Family Medicine
DX: E11.9 Type 2 diabetes mellitus without complications (principal)
CPT/HCPCS: 36415; 80061

== ENCOUNTER 2025-01-28 12:46 | Outpatient (CLI) | payer OTHER, SELFPAY ==
--- NOTE | ~2025-01-28 | DEXA_ITS ---
Bone Density Report Name: CAMERON PIÑA Age: 64 Sex: Female Ethnicity: White Date of : 1960 Indication: postmenopausal; screening for osteoporosis; asthma or emphysema; hysterectomy; Referring Provider: Jose Montilla Study: Bone densitometry was performed. Exam Date: January 28, 2025 Accession number: [id number] Bone Density: Region BMD T-score Z-score Classification AP Spine(L1-L4) 1.216 1.5 3.4 Normal Femoral Neck (Left) 0.853 0.0 1.6 Normal Total Hip (Left) 1.060 1.0 2.2 Normal Femoral Neck (Right) 0.915 0.6 2.2 Normal Total Hip (Right) 1.085 1.2 2.5 Normal Femoral Neck Mean 0.884 0.3 1.9 Normal Total Hip Mean 1.072 1.1 2.4 Normal World Health Organization criteria for BMD impression classify patients as: Normal (T-score at or above -1.0), Osteopenia (T-score between -1.0 and -2.5), or Osteoporosis (T-score at or below -2.5). 10-year Fracture Risk: FRAX not reported because: All T-scores for Spine Total, Hip Total, Femoral Neck at or above -1.0 Clinical Information Provided by Patient: Has the following medical conditions: Asthma or Emphysema, Hysterectomy Patient maximum height was 66 Menopause Age: 33 No regular weight bearing exercise Drinks caffeinated beverages Onset of menses at age 8 Number of children 2 Impression: The patient has normal bone mass. Discussion: BONE DENSITY IS ABOVE THE MINIMUM DESIRABLE LEVEL AT ALL SKELETAL SITES TESTED. This patient?s bone mineral density is above the minimum desirable level (T-score -1.0 or better) at all sites measured. The patient should follow a healthful lifestyle (good nutrition with adequate calcium and vitamin D, and appropriate weight-bearing exercise). Follow-Up: Consider repeating this study in 5 years or sooner if there is some new clinical indication. Reported by: GEOFF on 01/28/2025 1:13:00 PM. Reviewed, dictated and finalized at location A.
--- NOTE | ~2025-01-28 | CT_ITS ---
Exam: CT chest without contrast Clinical History: [Personal history of nicotine dependence ] Comparison: [ None available] Technique: Multiple axial CT images of the chest without with IV contrast. Sagittal and coronal reformatted images were obtained. FINDINGS: Lungs and pleura: [ Tracheobronchial tree is patent. No pneumothorax. No pleural effusion. No free air under the diaphragm. No focal pulmonary consolidation. No pulmonary mass.] Mediastinum and pulmonary kimberly: [ No mass or adenopathy.] Axillary/intramammary and supraclavicular: [ No mass or adenopathy.] Heart and great vessels: [ Normal heart size.[ [ No pericardial effusion.] [ No aneurysm.] Chest Wall: [ Unremarkable.] Upper Abdomen: [ No significant findings.] Osseous structures: [ No acute fracture or destructive lesion.] [ Multilevel degenerative change in the visualized spine.] Additional findings: [Hardware is noted in the spine with surrounding artifact which slightly limits evaluation.None of significance.] IMPRESSION: 1.Lung-RADS category 1: Negative. Continue annual screening with noncontrast low-dose chest CT in 12 months. Reviewed, dictated and finalized at location Q. IMPRESSION: 1.Lung-RADS category 1: Negative. Continue annual screening with noncontrast lo w-dose chest CT in 12 months.
--- OUTSIDE RECORDS SUMMARY | 2025-01-28 12:48 | XMS_ITS | Clinical Summary ---
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
--- OUTSIDE RECORDS SUMMARY | 2025-01-28 12:48 | XMS_ITS | Clinical Summary ---
Author Organization [facility] Address [facility] [place] [address] Care Team Providers Care Sales Host Name Role Phone Jose Montilla DO Primary Care Provider [phone] Social History Tobacco Use Types Packs/Day Years [...] patient's age to complete this topic Insurance [facility] Care Teams Sales Host Relationship Specialty Start Date End Date Jose Montilla DO [address] [place] [address] PCP - General FAMILY PRACTICE 06/08/21
== END 2025-01-28 12:47 | disposition home or self-care (01) ==
PROVIDERS: PCP Family Medicine; Visit Provider Family Medicine
DX: Z12.2 Encounter for screening for malignant neoplasm of respiratory organs (principal); Z87.891 Personal history of nicotine dependence; Z78.0 Asymptomatic menopausal state
CPT/HCPCS: 71271; 77080

== ENCOUNTER 2025-01-29 16:50 | Emergency (ER) | payer OTHER, SELFPAY ==
--- NOTE | ~2025-01-29 | XR_ITS ---
RIGHT XR tibia fibula LT 2V Indication: Fall, pain/swelling below Lt. knee; radiates down Lt. leg Comparison: None Technique: 3 view. Findings: No acute fracture or malalignment. Moderate degenerative changes. Large calcaneal spur. Moderate Achilles enthesopathy. Soft tissues are unremarkable. Impression: No acute fracture or malalignment. Reviewed, dictated and finalized at location A. Impression: No acute fracture or malalignment.
[2025-01-29 16:53] VITALS: BP 137/85; PULSE 109; RESP 18; TEMP 37.8; O2SAT 97
--- NOTE | 2025-01-29 17:13 | ED_ITS ---
HPI - Extremity Injury (Lower) General Chief Complaint: Extremity Injury, Lower Stated Complaint: left leg injury from fall Time Seen by Provider: 01/29/25 16:58 Source: patient Mode of arrival: ambulatory Limitations: no limitations History of Present Illness HPI Narrative: this is a 64-year-old female that tripped and fell doors hitting the anterior left mid leg causing some swelling and abrasions patient is up-to-date with her tetanus has good range of motion with no numbness or tingling no calf pain or calf tenderness. complaint: leg injury Onset (ago): minute(s) Type of Injury: blunt Place: street/outdoors Severity: mild Relieving factors: NSAID Context: fall Related Data Home Medications ?Medication ?Instructions ?Recorded ?Confirmed ?Last Taken ?Type albuterol 90 mcg-budesonide 80 2 inh inhalation ONCE 0 10/05/24 10/19/24 Unknown History mcg/actuation HFA aerosol inhaler (Airsupra) Allergies Allergy/AdvReac Type Severity Reaction Status Date / Time hydrocodone (Vicodin) Allergy Intermediate Hypotension Verified 01/29/25 16:54 Review of Systems Review of Systems: All systems reviewed & are unremarkable except as noted in HPI and below PMFSH Past Medical History Medical History [facility] current use of anticoagulant Insect bite Obesity, morbid, BMI 40.0-49.9 History of DVT (deep vein thrombosis) Asthma Hyperlipidemia Surgical History Surgical History History of hysterectomy H/O section History of cholecystectomy 2004 Family History Family History Other Family history of type 2 diabetes mellitus Hypertension Social History Social History Smoking packs per day: 1.5 Smoking cigarettes per day: 30.0 Years smoked: 35 Smoking pack-years: 52.50 Smoking status: Former smoker Tobacco type: cigarettes Additional smoking assessment comments: Quit 2009. Over 30 pack-year history Alcohol intake: never Substance use type: does not use Lack of Transportation: No Lack of Food: Never True Current Housing: I Have Housing Concerned About Future Housing: No Difficulty Paying Gas/Electric Bills: No Difficulty Paying for Meds: No Currently Unemployed: No Education: Trade/Vocational Certificate Difficulty w/ Childcare or Family Care: No Living arrangements: with family Occupation/Education: occupation Additional occupation/education comments: [employer]. Spiritual care concerns: No Exam Const: General: healthy appearing and no acute distress Nutritional Appearance: well nourished Orientation/consciousness: patient oriented x3 Limitations: no limitations HENMT: Head: normal to inspection Eyes: Conjunctivae: conjunctivae normal Neck: Neck: normal visual inspection Chest: Chest palpation & inspection: normal inspection of the chest Resp: Effort & Inspection: normal respiratory effort Auscultation: clear to auscultation bilaterally Cardio: Rate: regular rate Rhythm: regular rhythm GI: GI Palp: Yes Soft to palpation Auscultation: normal bowel sounds : General: Yes bladder normal to palpation Skin: Wounds: wounds noted Neuro: General: patient oriented x3 and moves all extremities Extrem: Other: Mild swelling anterior mid left leg Course Course Emergency Course: x-ray performed shows no acute fractures patient did take medication prior to arrival currently pain well controlled up-to-date with her tetanus. Vital Signs Vital signs: Vital Signs Temperature 37.8 C H 01/29/25 16:53 Pulse Rate 109 H 01/29/25 16:53 Respiratory Rate 18 01/29/25 16:53 Blood Pressure 137/85 01/29/25 16:53 Pulse Oximetry 97 01/29/25 16:53 Oxygen Delivery Room Air 01/29/25 16:53 Temperature 37.8 C H 01/29/25 16:53 Pulse Rate 109 H 01/29/25 16:53 Respiratory Rate 18 01/29/25 16:53 Blood Pressure 137/85 01/29/25 16:53 Pulse Oximetry 97 01/29/25 16:53 Oxygen Delivery Room Air 01/29/25 16:53 Critical Care Time Critical Care Time Critical Care Time: No Discharge Plan Discharge Clinical Impression: Contusion Qualifiers: Encounter type: initial encounter Contusion area: lower leg Laterality: left Qualified Code(s): S80.12XA - Contusion of left lower leg, initial encounter Patient Disposition: Home Condition: Stable Instructions: Antibiotic Form, Contusion in Adults (ED) Additional Instructions: patient advised take Tylenol or Motrin can apply ice to affected area and follow-up with primary if symptoms persist or worsen. Patient Language: Puerto Rican Prescriptions: No Action Eliquis 5 mg tablet See Rx Instructions .ROUTE .COMPLEX Qty: 180 3RF Dose Instruction: TAKE 1 TABLET BY MOUTH TWICE A DAY Rx Instructions: TAKE 1 TABLET BY MOUTH TWICE A DAY Breo Ellipta 50-25 mcg/dose blister with device 2 inh inhalation DAILY PRN (Reason: Asthma ) 30 Days Qty: 180 3RF Airsupra 90-80 mcg/actuation HFA aerosol inhaler 2 inh inhalation ONCE Rx Instructions: as a single dose; may repeat up to 6 doses per day (12 inhalations) SAMPLES GIVEN TO PATIENT IN OFFICE TODAY [facility]- [id number] LOT- [id number] 2024-12 SUSHIL/AW Trulicity 1.5 mg/0.5 mL pen injector See Rx Instructions .ROUTE .COMPLEX Qty: 2 2RF Dose Instruction: INJECT 1.5 MG (0.5 ML) SUBCUTANEOUSLY ONCE WEEKLY Rx Instructions: INJECT 1.5 MG (0.5 ML) SUBCUTANEOUSLY ONCE WEEKLY montelukast 10 mg tablet See Rx Instructions .ROUTE .COMPLEX Qty: 90 3RF Dose Instruction: TAKE 1 TABLET BY MOUTH EVERY DAY Rx Instructions: TAKE 1 TABLET BY MOUTH EVERY DAY atorvastatin [Lipitor] 20 mg tablet 20 mg PO DAILY Qty: 90 0RF Follow-up/Referrals: Jose Montilla DO [Primary Care Provider, Family Practice]
[2025-01-29 17:39] VITALS: BP 137/95; PULSE 98; RESP 18; TEMP 37.4; O2SAT 97
== END 2025-01-29 17:39 | disposition home or self-care (01) ==
LOC: CHSED 17:30
PROVIDERS: Emergency Provider Emergency Medicine; PCP Family Medicine
DX: S80.12XA Contusion of left lower leg, initial encounter (principal); E78.5 Hyperlipidemia, unspecified; Z86.718 Personal history of other venous thrombosis and embolism; Z87.891 Personal history of nicotine dependence; W01.0XXA Fall on same level from slipping, tripping and stumbling without subsequent striking against object, initial encounter
CPT/HCPCS: 73590; 99283